=== PATIENT | female | born 1975 | race Caucasian/White ===

== ENCOUNTER → 2016-09-30 | Outpatient (CLI) | payer OTHER ==
[~2016-09-30] MED LIST: ACET-1256 PO; ACET-1325 PO; ALLO100T PO; AMT25 PO; CABE0.5T PO; CALC600T37 PO; CEFA500C2 PO; CIPR1TAB11 PO; GLC/500 PO; LEVO125T5 PO; LEVO50TA6 PO; ONDA4TAB10 SL; OXYC1TAB3 PO; POTA4.25 PO; PRD20 PO; PRED20TA PO; PRT40 PO; RIZA10TA19 PO; SULF800T23 PO; SUMA100T15 PO; SUMA100T16 PO; TPRSR/100 PO; TRAM-10 PO; URC10 PO; VLTG EXT
== END | disposition home or self-care (01) ==
LOC: C.LABPVFM 07:54
PROVIDERS: ATTEND Internal Medicine Endocrinology, Diabetes & Metabolism
DX: D49.7 Neoplasm of unspecified behavior of endocrine glands and other parts of nervous system (principal)

== ENCOUNTER → 2016-10-13 | Outpatient (CLI) | payer OTHER ==
[~2016-10-13] MED LIST changes: +LEVO125T4 PO; -LEVO125T5 PO
[2016-10-13 12:45] LABS: THYROID STIMULATING HORMONE 2.26 uIu/ml (0.300-4.500)
== END | disposition home or self-care (01) ==
LOC: C.LAB1850 11:01
PROVIDERS: ATTEND Internal Medicine Endocrinology, Diabetes & Metabolism
DX: E03.9 Hypothyroidism, unspecified (principal)

== ENCOUNTER 2016-11-07 11:44 | Inpatient (IN) | payer OTHER ==
[~2016-11-07] VITALS: Ht 160 cm; Wt 130.7 kg
[~2016-11-07 11:44] MED LIST changes: -ACET-1256 PO; -ACET-1325 PO; -ALLO100T PO; -AMT25 PO; -CABE0.5T PO; -CALC600T37 PO; -CEFA500C2 PO; -CIPR1TAB11 PO; -GLC/500 PO; -LEVO125T4 PO; -ONDA4TAB10 SL; -POTA4.25 PO; -PRD20 PO; -PRED20TA PO; -PRT40 PO; -RIZA10TA19 PO; -SULF800T23 PO; -SUMA100T15 PO; -SUMA100T16 PO; -TPRSR/100 PO; -TRAM-10 PO; -URC10 PO; -VLTG EXT
[2016-11-07] MEDS ORDERED: SODIUM CHLORIDE 0.9% 1000ML 1,000 ML IV STA (12:48)
[2016-11-07] MEDS ORDERED: CEFTRIAXONE SOD INJ 1 GM ADDVIAL IV STA (12:48)
--- NOTE | 2016-11-07 12:52 | EMERGENCY ROOM VISIT NOTE ---
History Report prepared by [place]: Elsa Ellington Under the Supervision of: Dr. Bryce Arguello M.D. First contact with patient: 12:04 Chief Complaint: FLANK PAIN Stated Complaint: BACK PAIN History of Present Illness The patient is a 41 year old female who presents to the Emergency Room with complaints of worsening right flank pain beginning this morning. The patient rates her pain as 6/10 in severity. She states that when she woke up this morning her pain had increased to be a throbbing sensation. She notes she is experiencing nausea, urinary frequency and constipation. The patient denies diarrhea or vomiting. She does have chronic generalized weakness. Patient notes that she does have a history of kidney stones and UTI. Source of History: patient Onset: this morning Position: other (right flank) Symptom Intensity: 6/10 Quality: other (throbbing) Timing: worsening Associated Symptoms: + nausea, + urinary symptoms (frequency), + weakness ( chronic generalized), No diarrhea, No vomiting Review of Systems See HPI for pertinent positives & negatives. A total of 10 systems reviewed and were otherwise negative. Past Medical & Surgical Medical Problems: (1) Diabetes (2) HTN (hypertension) (3) Weakness Family History Patient reports no known family medical history. Social History Smoking Status: Former Smoker Alcohol Use: occasionally Drug Use: none Marital Status: Current/Historical Medications Scheduled Calcium (Calcium), 600 MG PO DAILY Levothyroxine Sodium (Levothyroxine Sodium), 1 TAB PO DAILY Metoprolol Succinate (Metoprolol Succinate ER), 100 MG PO DAILY Sulfa/Trimethoprim (Bactrim Ds 800MG/160MG), 1 TAB PO BID Scheduled PRN Acetaminophen (Tylenol), 1,000 MG PO Q6H PRN for Headache or Pain Tramadol (Ultram), 1-2 TABS PO Q6 PRN for Pain Allergies Coded Allergies: Peanut (Verified Allergy, Severe, ANAPHYLAXIS, 07/17/16) Amlodipine (Verified Allergy, Intermediate, FEET SWELL AND TURN RED, 07/17) Banana (Verified Allergy, Intermediate, "DRUNKEN" FEELING, 07/17/16) NSAIDs (Verified Allergy, Unknown, hx chronic kidney diseas, 11/07/16) Uncoded Allergies: NACROTICS (Allergy, Unknown, hx of drug addiction, 11/07/16) Physical Exam Vital Signs Date Time Temp Pulse Resp B/P Pulse Ox O2 Delivery O2 Flow Rate FiO2 11/07/16 18:38 102 18 103/90 95 Room Air 11/07/16 16:40 36.9 95 27 119/80 95 11/07/16 16:30 95 27 119/80 95 Room Air 11/07/16 16:00 92 28 123/78 95 Room Air 11/07/16 14:00 89 21 137/110 97 Room Air 11/07/16 13:18 100 11/07/16 11:56 36.9 97 20 137/76 97 Room Air Physical Exam GENERAL: Patient is a healthy-appearing well-nourished HEAD: Normocephalic atraumatic EYES: Ocular movements intact pupils equal and react to light OROPHARYNX mucous membranes are moist no exudates present no erythema or edema present NECK: Supple no nuchal rigidity CHEST: Good equal expansion LUNGS: Clear and equal to auscultation CARDIAC: Normal S1 and S2 ABDOMEN: Soft nontender no guarding BACK: No CVA tenderness EXTREMITIES: No pain upon palpation normal muscle strength in all groups no clubbing cyanosis or edema NEURO: Patient is following commands is answering questions appropriately. Alert and oriented x3 Cranial Nerves 2-12 grossly intact Medical Decision & Procedures ER Provider Diagnostic Interpretation: X-ray results as stated below per my interpretation and radiologist interpretation. Other radiology results as stated below per my review and radiologist interpretation: RENAL ULTRASOUND CLINICAL HISTORY: Right flank pain. COMPARISON STUDY: Renal ultrasound May 08, 2015. TECHNIQUE: Sonography of the kidneys and the urinary bladder was performed. FINDINGS: This exam is compromised by suboptimal penetration. There is no right hydronephrosis. The right kidney measures 12.4 x 4.6 x 5.9 cm. Echogenic foci within the renal sinus suggest calculi measuring up to approximately 6 mm. The left kidney was not visualized, as before. The right ureteral jet was identified. Bladder suboptimally assessed due to underdistention. IMPRESSION: 1. No right hydronephrosis. 2. Suspected right-sided nephrolithiasis. 3. Nonvisualization of the left kidney, as shown on exam of May 08, 2015. Electronically signed by: Donis Ramirez M.D. 11/07/2016 2:37 PM Dictated Date/Time: 11/07/2016 2:35 PM KUB CLINICAL HISTORY: Right flank pain. COMPARISON STUDY: Renal ultrasound May 08, 2015 and November 07, 2016. FINDINGS: Pelvic calcifications likely reflect phleboliths although make evaluation for ureteral calculi difficult. The bowel gas pattern is normal. No renal calculi are identified although the right renal shadow is partially obscured by stool. IMPRESSION: 1. No right renal calculi identified although the right renal shadow is largely obscured by stool. 2. Numerous pelvic calcifications. These likely reflect phleboliths although distal ureteral calculi cannot be excluded on this exam. Electronically signed by: Donis Ramirez M.D. 11/07/2016 2:58 PM Dictated Date/Time: 11/07/2016 2:57 PM Laboratory Results 11/07/16 13:20 Red Blood Count 4.71, Mean Corpuscular Volume 89.2, Mean Corpuscular Hemoglobin 30.1, Mean Corpuscular Hemoglobin Concent 33.8, Mean Platelet Volume 10.2, Neutrophils (%) (Auto) 77.0, Lymphocytes (%) (Auto) 15.6, Monocytes (%) (Auto) 6.6, Eosinophils (%) (Auto) 0.1, Basophils (%) (Auto) 0.3, Neutrophils # (Auto) 9.14, Lymphocytes # (Auto) 1.86, Monocytes # (Auto) 0.79, Eosinophils # (Auto) 0.01, Basophils # (Auto) 0.04 11/07/16 13:20 Test 11/07/16 13:09 11/07/16 13:10 11/07/16 13:20 11/07/16 18:51 Urine Color YELLOW Urine Appearance CLOUDY (CLEAR) Urine pH 5.5 (4.5-7.5) Urine Specific [place] 1.015 (1.000-1.030) Urine Protein NEG (NEG) Urine Glucose (UA) NEG (NEG) Urine Ketones NEG (NEG) Urine Occult Blood 1+ (NEG) Urine Nitrite POS (NEG) Urine Bilirubin NEG (NEG) Urine Urobilinogen NEG (NEG) Urine Leukocyte Esterase MODERATE (NEG) Urine RBC 10-30 /hpf (0-4) Urine WBC >30 /hpf (0-5) Urine Epithelial Cells >30 /lpf (0-5) Urine Bacteria 4+ (NEG) Uric Acid 8.8 mg/dl (2.6-7.2) Thyroid Stimulating Hormone (TSH) 0.627 uIu/ml (0.300-4.500) White Blood Count 11.89 K/uL (4.8-10.8) Red Blood Count 4.71 M/uL (4.2-5.4) Hemoglobin 14.2 g/dL (12.0-16.0) Hematocrit 42.0 % (37-47) Mean Corpuscular Volume 89.2 fL (80-100) Mean Corpuscular Hemoglobin 30.1 pg (25-34) Mean Corpuscular Hemoglobin Concent 33.8 g/dl (32-36) Platelet Count 410 K/uL (130-400) Mean Platelet Volume 10.2 fL (7.4-10.4) Neutrophils (%) (Auto) 77.0 % Lymphocytes (%) (Auto) 15.6 % Monocytes (%) (Auto) 6.6 % Eosinophils (%) (Auto) 0.1 % Basophils (%) (Auto) 0.3 % Neutrophils # (Auto) 9.14 K/uL (1.4-6.5) Lymphocytes # (Auto) 1.86 K/uL (1.2-3.4) Monocytes # (Auto) 0.79 K/uL (0.11-0.59) Eosinophils # (Auto) 0.01 K/uL (0-0.5) Basophils # (Auto) 0.04 K/uL (0-0.2) RDW Standard Deviation 53.8 fL (36.4-46.3) RDW Coefficient of Variation 16.4 % (11.5-14.5) Immature Granulocyte % (Auto) 0.4 % Immature Granulocyte # (Auto) 0.05 K/uL (0.00-0.02) Anion Gap 14.0 mmol/L (3-11) Est Creatinine Clear Calc Drug Dose 61.1 ml/min Estimated GFR () 45.9 Estimated GFR (Non- 39.6 BUN/Creatinine Ratio 15.2 (10-20) Calcium Level 9.6 mg/dl (8.5-10.1) Total Bilirubin 0.4 mg/dl (0.2-1) Direct Bilirubin 0.1 mg/dl (0-0.2) Aspartate Amino Transf (AST/SGOT) 23 U/L (15-37) Alanine Aminotransferase (ALT/SGPT) 21 U/L (12-78) Alkaline Phosphatase 102 U/L (45-117) Total Protein 8.9 gm/dl (6.4-8.2) Albumin 3.0 gm/dl (3.4-5.0) Lipase 158 U/L (73-393) Labs reviewed by ED physician. Medications Administered Medications (Trade) Dose Ordered Sig/Kathy Route Start Time Stop Time Status Last Admin Dose Admin Ceftriaxone Sodium 1 gm 1 gm NOW STAT IV 11/07/16 12:48 11/07/16 12:50 DC 11/07/16 13:28 1 GM Sodium Chloride (Nss 1000ml) 1,000 ml @ 999 mls/hr Q1H1M STAT IV 11/07/16 12:48 11/07/16 13:48 DC 11/07/16 13:28 999 MLS/HR Trimethoprim/ Sulfamethoxazole (Septra Ds 800/ 160MG Tab) 1 tab NOW STAT PO 11/07/16 14:25 11/07/16 14:26 DC 11/07/16 15:51 1 TAB Tramadol HCl (Ultram Tab) 50 mg NOW STAT PO 11/07/16 16:19 11/07/16 16:21 DC 11/07/16 16:35 50 MG Magnesium Citrate (Citrate Of Magnesia Soln) 296 ml NOW STAT PO 11/07/16 16:19 11/07/16 16:21 DC 11/07/16 16:35 296 ML ED Course 1246: Past medical records reviewed. The patient was evaluated in room C5. A complete history and physical examination was performed. 1248: Sodium Chloride 1,000 ml @ 999 mls/hr IV, Rocephin Inj 1 gm IV. 1424: Septra Ds 800/ 160 mg Tab 1 tab PO. 1619: Citrate of Magnesia Soln 296 ml PO, Ultram Tab 50 mg PO. 1629: Upon reexamination the patient is hemodynamically stable. I discussed results and treatment plan with the patient. She verbalizes agreement and understanding. The patient is ready for discharge. 180: Patient's family states they cannot take care of her and she needs hospitalization due to her weakness. 180: I discussed the patient's case with Dr. Bulmaro ARAYA, he has agreed to evaluate the patient for further management and care. Medical Decision The patient is a 41 year old female who presents to the ED with complaints of flank pain. Differential diagnosis: Etiologies such as appendicitis, diverticulitis, PUD, biliary pathology, UTI, pancreatitis, obstruction, mesenteric ischemia, aortic pathology, infections, inflammatory bowel disease, renal colic, as well as others were entertained. This is a 41-year-old female who presents emergency department complaining of right-sided flank pain. The patient does have an elevation in her white blood count does appear to have urinary tract infection. For this reason IV was established, patient started on Rocephin. The patient was able to tolerate oral fluids emergency department and was started on Bactrim. Does appear that the patient is constipated. For this reason I recommended magnesium citrate cleanout however the patient had been discharged from emergency department profile she could not walk into her van to take her home. For this reason she was placed back in her room and I did discuss the case with the hospitalist service who agreed to admit the patient. Patient family were in agreement with the treatment plan. Consults Time Called: 1805 Consulting Physician: Dr. Yvon WARNER Returned Call: [phone] I discussed the patient's case with Dr. Bulmaro WARNER, he has agreed to evaluate the patient for further management and care. Impression Primary Impression: Flank pain Additional Impressions: UTI (urinary tract infection) Constipation Scribe Attestation The scribe's documentation has been prepared under my direction and personally reviewed by me in its entirety. I confirm that the note above accurately reflects all work, treatment, procedures, and medical decision making performed by me. Departure Information Dispostion Being Evaluated By Hospitalist Prescriptions Tramadol (Ultram) 50 Mg Tab 1-2 TABS PO Q6 Y for Pain, #14 TAB Prov: Bryce Arguello MD 11/07/16 Sulfa/Trimethoprim (Bactrim Ds 800MG/160MG) Tab 1 TAB PO BID for 10 Days, #20 TAB Prov: Bryce Arguello MD 11/07/16 Referrals Dana Harrington C.R.N.Bonifacio (PCP) Problem Qualifiers Additional Impressions: UTI (urinary tract infection) Urinary tract infection type: acute cystitis Hematuria presence: with hematuria Qualified Codes: N30.01 - Acute cystitis with hematuria Constipation Constipation type: slow transit constipation Qualified Codes: K59.01 - Slow transit constipation
[2016-11-07 13:26] LABS: MANUAL MICROSCOPIC REQUIRED? YES; URINE APPEARANCE CLOUDY (CLEAR); URINE BILIRUBIN NEG (NEG); URINE COLOR YELLOW; URINE NITRITE POS (NEG); URINE PH 5.5 (4.5-7.5); URINE SPECIFIC GRAVITY 1.015 (1.000-1.030); UROBILINOGEN NEG (NEG)
[2016-11-07 13:31] LABS: REVIEW REQ? NO
[2016-11-07 13:32] LABS: BASO % 0.3 %; BASO ABS # 0.04 K/uL (0-0.2); COMPLETE YES; EOS % 0.1 %; IG% 0.4 %; LYMPH % 15.6 %; LYMPH ABS # 1.86 K/uL (1.2-3.4); MEAN CELL VOLUME 89.2 fL (80-100); MEAN CORPUSCULAR HEMOGLOBIN 30.1 pg (25-34); MEAN CORPUSCULAR HGB CONC 33.8 g/dl (32-36); MEAN PLATELET VOLUME 10.2 fL (7.4-10.4); MONO % 6.6 %; PLATELET COUNT 410 K/uL (130-400); RED BLOOD COUNT 4.71 M/uL (4.2-5.4); WHITE BLOOD COUNT 11.89 K/uL (4.8-10.8)
[2016-11-07 13:35] LABS: URINE BACTERIA 4+ (NEG); URINE WBC >30 /hpf (0-5)
[2016-11-07 13:36] LABS: ZZUR CULT IF INDIC CLEAN CATCH YES
[2016-11-07 14:01] LABS: BUN/CREATININE RATIO 15.2 (10-20); CALCIUM 9.6 mg/dl (8.5-10.1); CREATININE 1.6 mg/dl (0.60-1.20); POTASSIUM 3.8 mmol/L (3.5-5.1)
[2016-11-07] MEDS ORDERED: SULFAMETHOXAZOLE/TRIMETHOPRIM DS 800/160MG TAB PO STA (14:25)
--- NOTE | 2016-11-07 14:39 | DIAGNOSTIC IMAGING REPORT ---
RENAL ULTRASOUND CLINICAL HISTORY: Right flank pain. COMPARISON STUDY: Renal ultrasound May 08, 2015. TECHNIQUE: Sonography of the kidneys and the urinary bladder was performed. FINDINGS: This exam is compromised by suboptimal penetration. There is no right hydronephrosis. The right kidney measures 12.4 x 4.6 x 5.9 cm. Echogenic foci within the renal sinus suggest calculi measuring up to approximately 6 mm. The left kidney was not visualized, as before. The right ureteral jet was identified. Bladder suboptimally assessed due to underdistention. IMPRESSION: 1. No right hydronephrosis. 2. Suspected right-sided nephrolithiasis. 3. Nonvisualization of the left kidney, as shown on exam of May 08, 2015. Electronically signed by: Donis Ramirez M.D. 11/07/2016 2:37 PM Dictated Date/Time: 11/07/2016 2:35 PM
--- NOTE | 2016-11-07 14:59 | DIAGNOSTIC IMAGING REPORT ---
KUB CLINICAL HISTORY: Right flank pain. COMPARISON STUDY: Renal ultrasound May 08, 2015 and November 07, 2016. FINDINGS: Pelvic calcifications likely reflect phleboliths although make evaluation for ureteral calculi difficult. The bowel gas pattern is normal. No renal calculi are identified although the right renal shadow is partially obscured by stool. IMPRESSION: 1. No right renal calculi identified although the right renal shadow is largely obscured by stool. 2. Numerous pelvic calcifications. These likely reflect phleboliths although distal ureteral calculi cannot be excluded on this exam. Electronically signed by: Donis Ramirez M.D. 11/07/2016 2:58 PM Dictated Date/Time: 11/07/2016 2:57 PM
[2016-11-07] MEDS ORDERED: MAGNESIUM CITRATE 296 ML/BTL PO STA (16:19)
[2016-11-07] MEDS ORDERED: TRAMADOL HCL 50 MG TAB PO STA (16:19)
[2016-11-07] MEDS ORDERED: TRAM-10 PO (16:25)
[2016-11-07] MEDS ORDERED: SULF800T23 PO (16:25)
[2016-11-07] MEDS ORDERED: ACETAMINOPHEN 500 MG TAB PO PRN (18:15)
[2016-11-07] MEDS ORDERED: ONDANSETRON INJ 2 MG/ML 2 ML VIAL IV PRN (18:15)
[2016-11-07] MEDS ORDERED: POLYETHYLENE (MIRALAX) 17 GM PACK PO PRN (18:15)
[2016-11-07] MEDS ORDERED: MAGNESIUM HYDROXIDE SUSP 30 ML UDC PO PRN (18:15)
[2016-11-07] MEDS ORDERED: ALUMINUM/MAGNESIUM/SIMETH (MAALOX MAX) 30 ML UDC PO PRN (18:15)
[2016-11-07 18:43] LABS: THYROID STIMULATING HORMONE 0.627 uIu/ml (0.300-4.500); URIC ACID 8.8 mg/dl (2.6-7.2)
[2016-11-07 18:47] VITALS: O2SAT 95; Ht 160 cm; Wt 130.7 kg
[2016-11-07 19:11] LABS: INR 1.1 (0.9-1.1); PROTHROMBIN TIME (PATIENT) 11.7 SECONDS (9.0-12.0)
[2016-11-07 19:45] VITALS: BP 128/92; PULSE 107; TEMP 36.9; O2SAT 95
[2016-11-07 20:30] VITALS: O2SAT 95
[2016-11-07] MEDS: HEPARIN SOD 5000 UNIT/0.5 ML CARP SQ SCH (20:55)
--- NOTE | 2016-11-07 21:38 | HISTORY & PHYSICAL EXAMINATION ---
DATE OF ADMISSION: 11/07/2016 CHIEF COMPLAINT: Flank pain. HISTORY OF PRESENT ILLNESS: This is a 41-year-old female, who presents to Emergency Room complaining of worsening right flank pain that started in the morning. She has pain 6/10, sharp, radiating to her right groin. She states that she woke up and had this throbbing pain sensation, associated with nausea, increased frequency of urination, burning and constipation. She also has generalized weakness. She also has history of kidney stones and UTI in the past. We were called by Emergency Room physician because the patient is being discharged home. She could not walk and upon further questioning, she said that she had really trouble walking in the last few days and today she just could not stand. She was brought back to the room where she was further evaluated. She also complains of right toe pain, to the point where she cannot step on it. She also has a solitary kidney since her and her baseline creatinine is 1.5-1.6. REVIEW OF SYSTEMS: Negative except as above. Ten out of fourteen systems were reviewed. PAST MEDICAL HISTORY: Diabetes mellitus type 2, hypertension and weakness. FAMILY HISTORY: Heart disease. SOCIAL HISTORY: Does not smoke, does not drink, does not use drugs. . CURRENT MEDICATIONS: Calcium 600 mg p.o. daily, levothyroxine unknown dose 1 tablet p.o. daily, metoprolol ER 100 mg p.o. daily, Bactrim 800/160 mg 1 tablet p.o. b.i.d. She also received a dose of IV ceftriaxone at 1:30 p.m. today in the Emergency Room. Tylenol 1000 mg p.o. q. 6 hours p.r.n. headache or pain, tramadol 1-2 tablets p.o. q. 6 hours p.r.n. pain. ALLERGIES: TO PEANUTS, AMLODIPINE, BANANA, NSAIDS AND NARCOTICS. PHYSICAL EXAMINATION: VITAL SIGNS: Temperature 36.9, pulse 95, respirations 27, blood pressure 119/80 and 95% on room air. GENERAL: Not in acute distress. HEENT: Normocephalic, atraumatic. PERRLA, EOMI. Mouth moist, no lesions. NECK: No JVD. Trachea midline. Thyroid is not enlarged. LUNGS: Clear to auscultation bilateral. No wheezes, no rhonchi. HEART: S1, S2. RRR. ABDOMEN: Soft, nontender, nondistended. Bowel sounds present bilateral. BACK: No CVA tenderness. EXTREMITIES: No clubbing, cyanosis or edema. Right toe is very tender to touch; however, not red or inflamed. NEUROLOGICAL: Alert, oriented x3. Motor and sensory normal. Deep tendon reflexes 2+ bilateral. DIAGNOSTIC INTERPRETATION: Renal ultrasound showed no right hydronephrosis, suspected right-sided nephrolithiasis with renal sinus calculi approximately 6 mm, nonvisualization of the left kidney shown on exam on 05/08/2015. KUB showed no right renal calculi identified, although the right renal shadow was largely obscured by stool. Numerous pelvic calcifications, phleboliths. LABORATORIES: White count of11.9, hemoglobin of 14.8 and platelets of 411. Sodium 144, potassium 3.8, chloride 108, CO2 of 22, creatinine of 1.6, BUN of 24 and glucose of 104. Urine culture is pending. Urinalysis showed 1+ occult blood, positive nitrites, moderate leukocyte esterase, 10-30 red blood cells, more than 30 white blood cells, urine epithelial cells more than 30 and 4+ bacteria. ASSESSMENT AND PLAN: A 41-year-old female, who came with flank pain and right toe pain. 1. Right-sided nephrolithiasis, 6 mm renal sinus calculi. Admit to general medical floor, n.p.o. past midnight. Consult urologist. Start on IV ceftriaxone. 2. Urinary tract infection. Check urine cultures and continue IV ceftriaxone. 3. Suspected acute gout exacerbation. Start patient on oral prednisone. Unable to give colchicine and ibuprofen or aspirin due to kidney dysfunction. Consult orthopedic surgeon for possible aspiration of right toe joint to see if crystals are present. 4. Weakness, unable to walk, likely secondary to infection and gout. We will also order physical therapy and occupational therapy when the patient is able to participate and treat underlying causes. 5. History of hypothyroidism, continue the patient on home dose. Check TSH. 6. History of hypertension. Continue metoprolol. 7. Mentioned history of diabetes; however sugars are normal, not on any medications. I will check a hemoglobin A1c and we will start checking her blood sugars before meals and bedtime. 8. Deep venous thrombosis and gastrointestinal prophylaxis. The patient is a full code. Time spent on doing this admission; 50 minutes. MTDD
[2016-11-07] MEDS: TRAMADOL HCL 50 MG TAB PO PRN (22:48)
[2016-11-07 23:18] VITALS: BP 114/76; PULSE 98; TEMP 36.9; O2SAT 97
[2016-11-08] MEDS: ACETAMINOPHEN 325 MG TAB PO PRN ×3 (00:01→15:49)
[2016-11-08] MEDS: LEVOTHYROXINE 125 MCG TAB PO SCH (05:37)
[2016-11-08] MEDS: TRAMADOL HCL 50 MG TAB PO PRN ×2 (05:38→12:45)
[2016-11-08 06:18] LABS: ESTIMATED AVERAGE GLUCOSE 111 mg/dl; HA1C FLAG Normal (Normal)
[2016-11-08 08:05] VITALS: BP 106/72; PULSE 80; TEMP 37; O2SAT 95
[2016-11-08 08:15] LABS: BASO % 0.4 %; BASO ABS # 0.04 K/uL (0-0.2); COMPLETE YES; EOS % 0.4 %; HEMATOCRIT 37.7 % (37-47); IG% 0.4 %; LYMPH ABS # 1.75 K/uL (1.2-3.4); MEAN CELL VOLUME 91.3 fL (80-100); MEAN PLATELET VOLUME 10.3 fL (7.4-10.4); MONO % 8.7 %; NEUT % 73.1 %; PLATELET COUNT 338 K/uL (130-400); RED BLOOD COUNT 4.13 M/uL (4.2-5.4)
[2016-11-08 08:16] VITALS: O2SAT 95
--- NOTE | 2016-11-08 08:31 | Urology Consultation ---
History General Date of Service: Nov 08, 2016. Chief Complaint: right flank pain Primary Care Physician: Dana Harrington C.R.N.P History of Present Illness 41 yo female presents to [facility] with c/o severe right flank pain and nausea that started yesterday. ? ureteral stone. No stones visualized on KUB. Small right renal stone noted on renal u/s. Negative for right hydro. The pt was born with a solitary right kidney. She has a hx of passing a stone many years ago while living in [place]. Baseline Cr noted to be 1.5-1.6. She also has a hx of gout for which she is currently being treated. She reports her flank pain and nausea have improved this morning. Denies dysuria or hematuria. She is currently afebrile. UC&S preliminarily growing gram negative bacilli. White count has normalized. Imaging Imaging: KUB, Ultrasound Laboratory Last 24 Hours Test 11/07/16 13:09 11/07/16 13:10 11/07/16 13:20 11/07/16 20:40 Urine Color YELLOW Urine Appearance CLOUDY Urine pH 5.5 Urine Specific [place] 1.015 Urine Protein NEG Urine Glucose (UA) NEG Urine Ketones NEG Urine Occult Blood 1+ Urine Nitrite POS Urine Bilirubin NEG Urine Urobilinogen NEG Urine Leukocyte Esterase MODERATE Urine RBC 10-30 /hpf Urine WBC >30 /hpf Urine Epithelial Cells >30 /lpf Urine Bacteria 4+ Uric Acid 8.8 mg/dl Thyroid Stimulating Hormone (TSH) 0.627 uIu/ml White Blood Count 11.89 K/uL Red Blood Count 4.71 M/uL Hemoglobin 14.2 g/dL Hematocrit 42.0 % Mean Corpuscular Volume 89.2 fL Mean Corpuscular Hemoglobin 30.1 pg Mean Corpuscular Hemoglobin Concent 33.8 g/dl Platelet Count 410 K/uL Mean Platelet Volume 10.2 fL Neutrophils (%) (Auto) 77.0 % Lymphocytes (%) (Auto) 15.6 % Monocytes (%) (Auto) 6.6 % Eosinophils (%) (Auto) 0.1 % Basophils (%) (Auto) 0.3 % Neutrophils # (Auto) 9.14 K/uL Lymphocytes # (Auto) 1.86 K/uL Monocytes # (Auto) 0.79 K/uL Eosinophils # (Auto) 0.01 K/uL Basophils # (Auto) 0.04 K/uL RDW Standard Deviation 53.8 fL RDW Coefficient of Variation 16.4 % Immature Granulocyte % (Auto) 0.4 % Immature Granulocyte # (Auto) 0.05 K/uL Prothrombin Time 11.7 SECONDS Prothromb Time International Ratio 1.1 Sodium Level 144 mmol/L Potassium Level 3.8 mmol/L Chloride Level 108 mmol/L Carbon Dioxide Level 22 mmol/L Anion Gap 14.0 mmol/L Blood Urea Nitrogen 24 mg/dl Creatinine 1.60 mg/dl Est Creatinine Clear Calc Drug Dose 61.1 ml/min Estimated GFR () 45.9 Estimated GFR (Non- 39.6 BUN/Creatinine Ratio 15.2 Random Glucose 104 mg/dl Estimated Average Glucose 111 mg/dl Hemoglobin A1c 5.5 % Calcium Level 9.6 mg/dl Total Bilirubin 0.4 mg/dl Direct Bilirubin 0.1 mg/dl Aspartate Amino Transf (AST/SGOT) 23 U/L Alanine Aminotransferase (ALT/SGPT) 21 U/L Alkaline Phosphatase 102 U/L Total Protein 8.9 gm/dl Albumin 3.0 gm/dl Lipase 158 U/L Bedside Glucose 104 mg/dl Test 11/08/16 07:39 11/08/16 08:05 Bedside Glucose 102 mg/dl White Blood Count 10.30 K/uL Red Blood Count 4.13 M/uL Hemoglobin 12.8 g/dL Hematocrit 37.7 % Mean Corpuscular Volume 91.3 fL Mean Corpuscular Hemoglobin 31.0 pg Mean Corpuscular Hemoglobin Concent 34.0 g/dl Platelet Count 338 K/uL Mean Platelet Volume 10.3 fL Neutrophils (%) (Auto) 73.1 % Lymphocytes (%) (Auto) 17.0 % Monocytes (%) (Auto) 8.7 % Eosinophils (%) (Auto) 0.4 % Basophils (%) (Auto) 0.4 % Neutrophils # (Auto) 7.53 K/uL Lymphocytes # (Auto) 1.75 K/uL Monocytes # (Auto) 0.90 K/uL Eosinophils # (Auto) 0.04 K/uL Basophils # (Auto) 0.04 K/uL RDW Standard Deviation 56.6 fL RDW Coefficient of Variation 16.8 % Immature Granulocyte % (Auto) 0.4 % Immature Granulocyte # (Auto) 0.04 K/uL Problem List Medical Problems: (1) Constipation Status: Acute (2) Edema Status: Acute (3) Flank pain Status: Acute (4) Knee pain Status: Acute (5) UTI (urinary tract infection) Status: Acute Past History diabetes, hypertension, kidney stones, other (morbid obesity) Past Surgical History: no surgical history Family History Patient reports no known family medical history. Social History Smoking: other (former smoker) Alcohol: occasional Drug use: none Marital status: Housing status: lives with family Allergies Coded Allergies: Peanut (Verified Allergy, Severe, ANAPHYLAXIS, 07/17/16) Amlodipine (Verified Allergy, Intermediate, FEET SWELL AND TURN RED, 07/17) Banana (Verified Allergy, Intermediate, "DRUNKEN" FEELING, 07/17/16) NSAIDs (Verified Allergy, Unknown, hx chronic kidney diseas, 11/07/16) Uncoded Allergies: NACROTICS (Allergy, Unknown, hx of drug addiction, 11/07/16) Medications Home Medications: Home Meds and Scripts Medications Dose Route/Sig Max Daily Dose Days Date Category Ultram (Tramadol HCl) 50 Mg Tab 1-2 Tabs PO Q6 PRN 11/07/16 Rx Bactrim Ds 800MG/160MG (Trimethoprim/Sulfamethoxazole) Tab 1 Tab PO BID 10 11/07/16 Rx Levothyroxine Sodium 125 Mcg Tab 1 Tab PO DAILY 90 11/07/16 Reported Metoprolol Succinate ER (Metoprolol Succinate) 100 Mg Tabcr 100 Mg PO DAILY 07/23/16 Reported Calcium 600 Mg Tab 600 Mg PO DAILY 07/17/16 Reported Tylenol (Acetaminophen) 500 Mg Tab 1,000 Mg PO Q6H PRN 01/09/15 Reported Inpatient Medications: Current Inpatient Medications Medications (Trade) Dose Ordered Sig/Kathy Route Start Time Stop Time Status Last Admin Dose Admin Levothyroxine Sodium (Synthroid Tab) 125 mcg DAILYBB PO 11/08/16 06:00 12/08/16 06:59 11/08/16 05:37 125 MCG Tramadol HCl (Ultram Tab) 50 mg Q6 PRN PO 11/07/16 18:15 12/07/16 18:14 11/08/16 05:38 50 MG Calcium/Vitamin D (Caltrate Plus Tab) 1 tab DAILY PO 11/08/16 09:00 12/08/16 08:59 Metoprolol Succinate 100 mg 100 mg DAILY PO 11/08/16 09:00 12/08/16 08:59 Ceftriaxone Sodium/Dextrose (Rocephin Inj/ Dextrose Add-H[place]art 50ML) 50 ml @ 100 mls/hr DAILY@1400 IV 11/08/16 14:00 11/16/16 14:29 Acetaminophen (Tylenol Tab) 650 mg Q4H PRN PO 11/07/16 18:15 12/07/16 18:14 11/08/16 06:25 650 MG Al Hydrox/Mg Hydrox/Simethicone (Maalox Max Susp) 15 ml Q4H PRN PO 11/07/16 18:15 12/07/16 18:14 Magnesium Hydroxide (Milk Of Magnesia Susp) 30 ml Q6H PRN PO 11/07/16 18:15 12/07/16 18:14 Polyethylene (Miralax Powder Packet) 17 gm DAILY PRN PO 11/07/16 18:15 12/07/16 18:14 Ondansetron HCl (Zofran Inj) 4 mg Q6H PRN IV 11/07/16 18:15 12/07/16 18:14 Heparin Sodium (Porcine) (Heparin Sq 5000 Unit/0.5ml) 5,000 unit Q12 SQ 11/07/16 21:00 12/07/16 20:59 11/07/16 20:55 5,000 UNIT Prednisone (PredniSONE TAB) 60 mg DAILY PO 11/07/16 18:30 12/07/16 18:29 Review of Systems Review of Systems Constitutional: No chills, No fever Eyes: No double vision Neurological: No dizzy Endocrine: No excessive thirst Gastrointestinal: No abdominal pain, No nausea, No vomiting Cardiovascular: No chest pain Respiratory: No shortness of breath Skin: No rash Musculoskeletal: + joint pain (fingers and toes with active gout ), No back pain Female : No blood in urine, No painful urination Physical Exam Vital Signs: Vital Signs Past 12 Hours Date Time Temp Pulse Resp B/P Pulse Ox O2 Delivery O2 Flow Rate FiO2 11/08/16 08:16 95 Room Air 11/08/16 08:05 37.0 80 20 106/72 95 Room Air 11/07/16 23:55 Room Air 11/07/16 23:18 36.9 98 20 114/76 97 Room Air 11/07/16 20:30 95 Room Air Physical Exam: General Appearance: no apparent distress, + obese Eyes: bilateral eyes normal inspection ENT: hearing grossly normal Neck: no JVD Respiratory/Chest: no respiratory distress, no accessory muscle use Cardiovascular: no JVD Extremities: normal inspection Neurologic/Psychiatric: alert, normal mood/affect, oriented x 3 Skin: normal color Assessment & Plan Assessment & Plan A/P: Right flank pain, solitary right kidney, UTI AFVSS. Pt with right flank pain and UTI. Continue IV abx pending culture sensitivities. Pt may be a uric acid stone former d/t hx of gout. Will get a non-contrast CT today to r/o ureteral stone. NPO after midnight in the event she is shown to have a ureteral stone and needs stent placement. Supportive management with IVF and pain control for now. Thanks for the consult. Will continue to follow along with primary service at this time.
[2016-11-08 08:35] LABS: BUN/CREATININE RATIO 12.9 (10-20); CREATININE 1.5 mg/dl (0.60-1.20); POTASSIUM 3.7 mmol/L (3.5-5.1)
[2016-11-08] MEDS: HEPARIN SOD 5000 UNIT/0.5 ML CARP SQ SCH ×2 (09:00→20:48)
[2016-11-08] MEDS: CALCIUM 600MG + VIT D 400 IU TAB PO SCH (09:01)
[2016-11-08] MEDS: METOPROLOL SUCC 50MG EXT REL TAB PO SCH (09:02)
[2016-11-08] MEDS ORDERED: NURSING VERBAL MED ORDER ONE (09:45)
[2016-11-08] MEDS: DICLOFENAC SOD 1% GEL 100 GM TUBE EXT SCH ×3 (11:12→20:44)
--- NOTE | 2016-11-08 11:20 | DIAGNOSTIC IMAGING REPORT ---
ABDOMEN AND PELVIS CT WITHOUT CONTRAST CT DOSE: 1112.82 mGycm HISTORY: ? Ureteral stone; right flank pain; gout TECHNIQUE: Multiaxial CT images of the abdomen and pelvis were performed without the use of intravenous and oral contrast according to the standard department stone protocol. COMPARISON STUDY: Renal ultrasound 11/07/2016. FINDINGS: Calcified granuloma the right lower lobe. Bilateral L4 spondylolysis with associated grade I anterolisthesis. The unenhanced liver, spleen, adrenal glands, gallbladder, and pancreas are unremarkable. The left kidney is absent. There are multiple stones within the right kidney with the largest measuring 4 mm within the lower pole. Normal caliber left ureter. There is also a normal right ureter. No ureteral calculi identified. The bladder is unremarkable. The uterus and bilateral adnexa are unremarkable. No pelvic free fluid. Suboptimal evaluation for bowel pathology due to the lack of intravenous and oral contrast. However, there is no definite bowel wall thickening or obstruction. Normal appendix. No retroperitoneal lymphadenopathy. IMPRESSION: 1. Right-sided nephrolithiasis. No hydronephrosis. 2. Absent left kidney, unchanged. 3. No definite bowel wall thickening or obstruction. 4. Normal appendix. Electronically signed by: Ayden Otero M.D. 11/08/2016 11:18 AM Dictated Date/Time: 11/08/2016 10:58 AM
[2016-11-08 14:30] VITALS: BP 124/76; PULSE 88; O2SAT 95
[2016-11-08] MEDS: CEFTRIAXONE SOD INJ 1 GM in DEXTROSE 5% ADD-VANTAGE 50ML 50 ML IV SCH (14:41)
[2016-11-08 15:15] VITALS: BP 112/77; PULSE 88; TEMP 37; O2SAT 94
--- NOTE | 2016-11-08 17:20 | Hospitalist Progress Note ---
Hospitalist Progress Note Date of Service Nov 08, 2016. Subjective Pt evaluation today including: conversation w/ patient, physical exam, chart review, lab review, review of studies, review of inpatient medication list PO Intake: jeff breakfast and lunch today Reports continued severe pain in bilat knees, right middle toe pain is improved slightly from yesterday. Right flank and right groin pain are improved. She had PT/OT evals and was recommended to have acute rehab. CT scan results reviewed with her Constitutional: No fever Cardiovascular: No chest pain Abdomen: No nausea, No pain, No vomiting Musculoskeletal: + joint pain Neurologic: + problem reported (headaches) Skin: No rash Objective Vital Signs Date Time Temp Pulse Resp B/P Pulse Ox O2 Delivery O2 Flow Rate FiO2 11/08/16 15:35 Room Air 11/08/16 15:15 37.0 88 18 112/77 94 Room Air 11/08/16 14:30 88 95 11/08/16 08:16 95 Room Air 11/08/16 08:05 37.0 80 20 106/72 95 Room Air 11/08/16 07:23 Room Air 11/07/16 23:55 Room Air 11/07/16 23:18 36.9 98 20 114/76 97 Room Air 11/07/16 20:30 95 Room Air 11/07/16 19:45 36.9 107 16 128/92 95 Room Air 11/07/16 19:37 95 18 134/95 95 11/07/16 18:47 95 Room Air 11/07/16 18:38 102 18 103/90 95 Room Air Physical Exam General Appearance: WD/WN, no apparent distress, + obese Eyes: sclerae normal ENT: hearing grossly normal, + pertinent finding (very poor dentition) Neck: trachea midline (and obese) Respiratory/Chest: lungs clear, normal breath sounds, no respiratory distress, no accessory muscle use Cardiovascular: regular rate, rhythm, no edema, no gallop, no murmur Abdomen: normal bowel sounds, soft, no organomegaly, + tenderness (in RLQ without guarding or rebound) Extremities: + pertinent finding (bilat knees with TTP over medial and anterior knees, right middle toe with mild ttp at base of prom phalanx, no erythema or edema) Neurologic/Psychiatric: alert, oriented x 3 Skin: normal color, warm/dry, no rash Laboratory Results Last 24 Hours Test 11/07/16 20:40 11/08/16 07:39 11/08/16 08:05 Bedside Glucose 104 mg/dl 102 mg/dl White Blood Count 10.30 K/uL Red Blood Count 4.13 M/uL Hemoglobin 12.8 g/dL Hematocrit 37.7 % Mean Corpuscular Volume 91.3 fL Mean Corpuscular Hemoglobin 31.0 pg Mean Corpuscular Hemoglobin Concent 34.0 g/dl Platelet Count 338 K/uL Mean Platelet Volume 10.3 fL Neutrophils (%) (Auto) 73.1 % Lymphocytes (%) (Auto) 17.0 % Monocytes (%) (Auto) 8.7 % Eosinophils (%) (Auto) 0.4 % Basophils (%) (Auto) 0.4 % Neutrophils # (Auto) 7.53 K/uL Lymphocytes # (Auto) 1.75 K/uL Monocytes # (Auto) 0.90 K/uL Eosinophils # (Auto) 0.04 K/uL Basophils # (Auto) 0.04 K/uL RDW Standard Deviation 56.6 fL RDW Coefficient of Variation 16.8 % Immature Granulocyte % (Auto) 0.4 % Immature Granulocyte # (Auto) 0.04 K/uL Sodium Level 139 mmol/L Potassium Level 3.7 mmol/L Chloride Level 106 mmol/L Carbon Dioxide Level 19 mmol/L Anion Gap 14.0 mmol/L Blood Urea Nitrogen 19 mg/dl Creatinine 1.50 mg/dl Est Creatinine Clear Calc Drug Dose 65.2 ml/min Estimated GFR () 49.6 Estimated GFR (Non- 42.8 BUN/Creatinine Ratio 12.9 Random Glucose 102 mg/dl Calcium Level 9.0 mg/dl Assessment and Plan A 41-year-old female with a h/o Rafke's Cleft cyst, right papilledema and headache syndrome (possible Pseudotumor cerebri), secondary amenorrhea, obesity , HTN, gout, kidney stones, congenital absence of left kidney, CKD Stage III, hypothyroidism, who presented with right sided flank pain, bilateral acute on chronic knee pain, and right middle toe pain. Joint pains thought to be gout related. Renal US showed: 1. No right hydronephrosis. 2. Suspected right-sided nephrolithiasis. 3. Nonvisualization of the left kidney, as shown on exam of May 08, 2015. CT Abd/Pel without contrast showed: 1. Right-sided nephrolithiasis. No hydronephrosis. 2. Absent left kidney, unchanged. 3. No definite bowel wall thickening or obstruction. 4. Normal appendix 1. Right-sided nephrolithiasis, Consult urologist. Start on IV ceftriaxone for UTI, no signs of sepsis -no hydronephrosis or MELBA, may have passed a stone? -appreciate further Urology recommendations 2. Urinary tract infection. -f/u urine culture with GNRs > 100k so far -continue IV ceftriaxone 3. Suspected acute gout exacerbation. Has long h/o joint pains mostly in knees requiring PT and Ortho evaluations at [facility] in the past. Uric acid level here is high at 8.8 -continue oral prednisone and taper down -consider starting allopurinol -Unable to give colchicine and ibuprofen or aspirin due to kidney dysfunction. -Consult orthopedic surgeon for possible aspiration of right toe joint to see if crystals are present. -PT/OT recommending acute rehab placement-will see if pt agreeable -pain control with prednisone, tylenol, tramadol, and voltaren gel Hypothyroidism, pituitary gland tumor, secondary amenorrhea, obesity. Ongoing outpt workups with Endocrine, Neurology (for pseudotumor cerebri, was to have LP today for opening pressure), and Neuroendocrine as well as NS (no surgery indicated). TSH here normal -continue synthroid Hypertension. STable - Continue metoprolol Deep venous thrombosis and gastrointestinal prophylaxis with heparin SQ and PPI Full code.
[2016-11-08] MEDS ORDERED: BUPIVACAINE 0.5 % 5 MG/1 ML MPF 30ML VIAL INFIL ONE (19:00)
[2016-11-08] MEDS ORDERED: METHYLPREDNISOLONE ACETATE 80 MG/ML VIAL IA ONE ×2 (19:00→19:05)
[2016-11-08] MEDS ORDERED: ETHYL CHLORIDE AER SPR 100 ML CAN EXT ONE (19:00)
--- NOTE | 2016-11-08 21:06 | ORTHOPEDIC CONSULTATION ---
DATE OF CONSULTATION: 11/08/2016 HOSPITAL CONSULTATION CHIEF COMPLAINT: Knee pain. HISTORY OF PRESENT ILLNESS: This patient is a 41-year-old morbidly obese female with a BMI of 51, who apparently has multiple medical complaints. She was admitted for what was supposedly weakness. She has a history of groin and flank pain as well and is admitted for a possible kidney stone. Apparently, patient has a prolonged history of knee pain which she has had orthopedic care by Dr. Morel at [facility]. She states her weakness has been getting worse, she is having trouble ambulating, but also now has knee pain. She last had injections apparently in her knees in June of 2016 using a corticosteroid. MEDICAL AND SURGICAL HISTORY: See admission history and physical. MEDICATIONS: Also per her admission history and physical. PHYSICAL EXAMINATION: GENERAL: Again, morbidly obese female, she is seated in a chair, at this time she is not in acute distress. EXTREMITIES: Examination of the lower extremities. Limited mostly to the knees. She did not have much effusion or warmth to her knees at this time. Her knees are flexed 90 degrees, she can extend them almost to 0 with some crepitus. She does not have any appreciable effusion, again no warmth and no instability. X-RAYS: Radiographs are not available at this time, apparently had been taken at [facility]. IMPRESSION: 1. 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 2. Morbid obesity. 3. Questionable history of gout, possible gouty arthritis. PLAN: The patient is a candidate for an injection. She has not had injections in some time. We will be happy to inject her. The injections will have to be ordered for the bedside and given, anticipate being able to give them on November 09. Thank you very much for this consultation.
[2016-11-08 23:55] VITALS: BP 106/72; PULSE 80; TEMP 36.7; O2SAT 97
[2016-11-09] MEDS: LEVOTHYROXINE 125 MCG TAB PO SCH (06:07)
[2016-11-09 06:57] LABS: BUN/CREATININE RATIO 15.2 (10-20); CALCIUM 9.3 mg/dl (8.5-10.1); CREATININE 1.3 mg/dl (0.60-1.20); MAGNESIUM 2.4 mg/dl (1.8-2.4); POTASSIUM 3.7 mmol/L (3.5-5.1)
[2016-11-09 07:07] VITALS: BP 109/67; PULSE 83; TEMP 36.7; O2SAT 95
[2016-11-09 08:10] LABS: BASO % 0.2 %; BASO ABS # 0.02 K/uL (0-0.2); COMPLETE YES; EOS % 0.1 %; HEMATOCRIT 37.3 % (37-47); IG% 0.4 %; LYMPH % 23.9 %; LYMPH ABS # 2.43 K/uL (1.2-3.4); MEAN CORPUSCULAR HEMOGLOBIN 30.2 pg (25-34); MEAN CORPUSCULAR HGB CONC 33.2 g/dl (32-36); MEAN PLATELET VOLUME 10.6 fL (7.4-10.4); MONO % 8.7 %; NEUT % 66.7 %; PLATELET COUNT 344 K/uL (130-400); WHITE BLOOD COUNT 10.18 K/uL (4.8-10.8)
[2016-11-09 08:38] LABS: BUN/CREATININE RATIO 14.1 (10-20); CALCIUM 9.1 mg/dl (8.5-10.1); CREATININE 1.4 mg/dl (0.60-1.20); POTASSIUM 3.7 mmol/L (3.5-5.1)
[2016-11-09] MEDS: METOPROLOL SUCC 50MG EXT REL TAB PO SCH (08:47)
[2016-11-09] MEDS: CALCIUM 600MG + VIT D 400 IU TAB PO SCH (08:47)
[2016-11-09] MEDS: DICLOFENAC SOD 1% GEL 100 GM TUBE EXT SCH ×4 (08:48→20:43)
[2016-11-09] MEDS: HEPARIN SOD 5000 UNIT/0.5 ML CARP SQ SCH ×2 (08:57→20:42)
[2016-11-09 09:00] VITALS: BP 108/77; PULSE 85; O2SAT 94
[2016-11-09] MEDS: PANTOprazole SOD 40 MG TAB PO SCH (09:06)
--- NOTE | 2016-11-09 11:55 | Procedure Note ---
Procedure Note Procedure Date Nov 09, 2016. Procedure Description Procedure Name: bilateral cortisone injections Procedure time out: side/site verified, patient ID confirmed, correct procedure Consent obtained: verbal Time of procedure: 11:50 Performed by: physician bi data architect (Donnie PHILIP) Indications: therapeutic Contraindications: none Description: time out taken, correct patient and extremities identified, 80mg depomedrol and 2 cc of bupivicaine injected into bilateral knees. she tolerated the procedure well. bandaid applied to injection site. Complications: none Patient tolerated procedure: well
--- NOTE | 2016-11-09 12:04 | Orthopedic Progress Note ---
Orthopedic Progress Note Date of Service Nov 09, 2016. Subjective Reports: feeling well Additional Notes: c/o bilateral knee pain, same as yesterday. has had previous injections which lasted for about 3 months. Objective calves soft nontender, N/V intact, capillary refill less than 2 sec., A&O x3, toes mobile +crepitation bilaterally, diffuse tenderness medial/lateral joint lines. no erythema or warmth, mild effusion. no signs of infection Date Time Temp Pulse Resp B/P Pulse Ox O2 Delivery O2 Flow Rate FiO2 11/09/16 09:00 85 108/77 94 Room Air 11/09/16 08:05 Room Air 11/09/16 07:07 36.7 83 16 109/67 95 Room Air 11/09/16 00:43 Room Air 11/08/16 23:55 36.7 80 18 106/72 97 Room Air 11/08/16 15:35 Room Air 11/08/16 15:15 37.0 88 18 112/77 94 Room Air 11/08/16 14:30 88 95 Laboratory Results 24 Hours: Test 11/09/16 07:45 White Blood Count 10.18 K/uL Red Blood Count 4.10 M/uL Hemoglobin 12.4 g/dL Hematocrit 37.3 % Mean Corpuscular Volume 91.0 fL Mean Corpuscular Hemoglobin 30.2 pg Mean Corpuscular Hemoglobin Concent 33.2 g/dl Platelet Count 344 K/uL Mean Platelet Volume 10.6 fL Neutrophils (%) (Auto) 66.7 % Lymphocytes (%) (Auto) 23.9 % Monocytes (%) (Auto) 8.7 % Eosinophils (%) (Auto) 0.1 % Basophils (%) (Auto) 0.2 % Neutrophils # (Auto) 6.79 K/uL Lymphocytes # (Auto) 2.43 K/uL Monocytes # (Auto) 0.89 K/uL Eosinophils # (Auto) 0.01 K/uL Basophils # (Auto) 0.02 K/uL Assessment & Plan Assessment: Bilateral knee pain -was given b/l cortisone injections in [place]une by dr collier which provided good relief, consult done by dr ash yesterday and agrees she may benefit from repeat injections. these were given today. will assess her response tomorrow. ice as needed
[2016-11-09] MEDS: CEFTRIAXONE SOD INJ 1 GM in DEXTROSE 5% ADD-VANTAGE 50ML 50 ML IV SCH (13:57)
[2016-11-09] MEDS: ACETAMINOPHEN 325 MG TAB PO PRN (14:00)
[2016-11-09 15:10] VITALS: BP 116/78; PULSE 80; TEMP 36.4; O2SAT 94
[2016-11-09] MEDS: TRAMADOL HCL 50 MG TAB PO PRN (15:45)
--- NOTE | 2016-11-09 16:05 | Progress Note ---
Subjective Date of Service: Nov 09, 2016. Subjective Pt evaluation today including: conversation w/ patient, chart review, lab review Voiding: no voiding problems 41 yo female with right flank and low back pain. Pt reports her period has started and she now has cramps this morning. Some right low back pain persists, but otherwise feels well. Denies dysuria or hematuria. No ureteral stones noted on CT. She does have a right renal stone, which was not visualized on KUB. + hx of gout. She reports a previous hx of stones requiring a medication to "dissolve them." UC&S noted to be positive growing boyd sensitive e coli. Cr of 1.4 today. Problem List Medical Problems: (1) Constipation Status: Acute (2) Edema Status: Acute (3) Flank pain Status: Acute (4) Knee pain Status: Acute (5) UTI (urinary tract infection) Status: Acute Review of Systems Constitutional: No chills, No fever Respiratory: No shortness of breath Cardiac: No chest pain Abdomen: + pain (lower abdominal pain and cramps; RLQ ), No nausea, No vomiting Female : No dysuria, No hematuria Heme: No abnormal bleeding/bruising Objective Vital Signs Date Time Temp Pulse Resp B/P Pulse Ox O2 Delivery O2 Flow Rate FiO2 11/09/16 09:00 85 108/77 94 Room Air 11/09/16 08:05 Room Air 11/09/16 07:07 36.7 83 16 109/67 95 Room Air 11/09/16 00:43 Room Air 11/08/16 23:55 36.7 80 18 106/72 97 Room Air Physical Exam General Appearance: no apparent distress, + obese Eyes: normal inspection ENT: hearing grossly normal Neck: no JVD Respiratory/Chest: no respiratory distress, no accessory muscle use Cardiovascular: no JVD Extremities: normal inspection Neurologic/Psychiatric: alert, normal mood/affect, oriented x 3 Skin: normal color Comments: Negative for CVA tenderness. Laboratory Results Last 24 Hours Test 11/08/16 17:02 11/08/16 20:46 11/09/16 00:00 11/09/16 06:00 Bedside Glucose 138 mg/dl 161 mg/dl 132 mg/dl 99 mg/dl Test 11/09/16 06:14 11/09/16 07:45 11/09/16 07:50 11/09/16 12:23 Sodium Level 142 mmol/L 143 mmol/L Potassium Level 3.7 mmol/L 3.7 mmol/L Chloride Level 109 mmol/L 109 mmol/L Carbon Dioxide Level 21 mmol/L 23 mmol/L Anion Gap 12.0 mmol/L 11.0 mmol/L Blood Urea Nitrogen 20 mg/dl 20 mg/dl Creatinine 1.30 mg/dl 1.40 mg/dl Est Creatinine Clear Calc Drug Dose 75.3 ml/min 69.9 ml/min Estimated GFR () 59.0 54.0 Estimated GFR (Non- 50.9 46.6 BUN/Creatinine Ratio 15.2 14.1 Random Glucose 99 mg/dl 92 mg/dl Calcium Level 9.3 mg/dl 9.1 mg/dl Magnesium Level 2.4 mg/dl White Blood Count 10.18 K/uL Red Blood Count 4.10 M/uL Hemoglobin 12.4 g/dL Hematocrit 37.3 % Mean Corpuscular Volume 91.0 fL Mean Corpuscular Hemoglobin 30.2 pg Mean Corpuscular Hemoglobin Concent 33.2 g/dl Platelet Count 344 K/uL Mean Platelet Volume 10.6 fL Neutrophils (%) (Auto) 66.7 % Lymphocytes (%) (Auto) 23.9 % Monocytes (%) (Auto) 8.7 % Eosinophils (%) (Auto) 0.1 % Basophils (%) (Auto) 0.2 % Neutrophils # (Auto) 6.79 K/uL Lymphocytes # (Auto) 2.43 K/uL Monocytes # (Auto) 0.89 K/uL Eosinophils # (Auto) 0.01 K/uL Basophils # (Auto) 0.02 K/uL RDW Standard Deviation 56.0 fL RDW Coefficient of Variation 16.7 % Immature Granulocyte % (Auto) 0.4 % Immature Granulocyte # (Auto) 0.04 K/uL Bedside Glucose 111 mg/dl Assessment and Plan A/P: UTI, right renal stone AFVSS. Continue IV abx for now. Would transition to 14 days of oral abx therapy such as Bactrim or Cipro once improved clinically. Would suspect her renal stone is likely composed of uric acid in the setting of gout and considering it is not visible on KUB. Would recommend she start potassium citrate if able, and consider metabolic stone eval with nephrology as an outpatient. May need to consider nephroureteroscopy for management of the stone in the future in the setting of solitary kidney. Will continue to follow along with primary service at this time.
--- NOTE | 2016-11-09 19:50 | Hospitalist Progress Note ---
Hospitalist Progress Note Date of Service Nov 09, 2016. Subjective Pt evaluation today including: conversation w/ patient, physical exam, chart review, lab review, review of studies, conversation w/ financial operations consultant (Dr. Zarco), review of inpatient medication list Voiding: no voiding problems Pain in right flank gone. Got her menses today and some of her right sided lower abd pain was likely menstrual cramps but she hasn't had a period in 2 years. Knees were injected today with steroids and already feeling better. She is awaiting approval for [facility] rehab Constitutional: No fever Respiratory: No shortness of breath Cardiovascular: No chest pain Abdomen: No pain All Other Systems: Reviewed and Negative Objective Vital Signs Date Time Temp Pulse Resp B/P Pulse Ox O2 Delivery O2 Flow Rate FiO2 11/09/16 15:45 Room Air 11/09/16 15:10 36.4 80 18 116/78 94 Room Air 11/09/16 09:00 85 108/77 94 Room Air 11/09/16 08:05 Room Air 11/09/16 07:07 36.7 83 16 109/67 95 Room Air 11/09/16 00:43 Room Air 11/08/16 23:55 36.7 80 18 106/72 97 Room Air Physical Exam General Appearance: WD/WN, no apparent distress, + obese Eyes: normal inspection, sclerae normal Respiratory/Chest: lungs clear, normal breath sounds, no respiratory distress, no accessory muscle use Cardiovascular: regular rate, rhythm, no edema, no gallop, no murmur Abdomen: normal bowel sounds, non tender, soft (and no CVA tenderness) Extremities: normal inspection, no pedal edema, no calf tenderness Neurologic/Psychiatric: alert Skin: normal color, warm/dry, no rash Laboratory Results Last 24 Hours Test 11/08/16 20:46 11/09/16 00:00 11/09/16 06:00 11/09/16 06:14 Bedside Glucose 161 mg/dl 132 mg/dl 99 mg/dl Sodium Level 142 mmol/L Potassium Level 3.7 mmol/L Chloride Level 109 mmol/L Carbon Dioxide Level 21 mmol/L Anion Gap 12.0 mmol/L Blood Urea Nitrogen 20 mg/dl Creatinine 1.30 mg/dl Est Creatinine Clear Calc Drug Dose 75.3 ml/min Estimated GFR () 59.0 Estimated GFR (Non- 50.9 BUN/Creatinine Ratio 15.2 Random Glucose 99 mg/dl Calcium Level 9.3 mg/dl Magnesium Level 2.4 mg/dl Test 11/09/16 07:45 11/09/16 07:50 11/09/16 12:23 11/09/16 17:04 White Blood Count 10.18 K/uL Red Blood Count 4.10 M/uL Hemoglobin 12.4 g/dL Hematocrit 37.3 % Mean Corpuscular Volume 91.0 fL Mean Corpuscular Hemoglobin 30.2 pg Mean Corpuscular Hemoglobin Concent 33.2 g/dl Platelet Count 344 K/uL Mean Platelet Volume 10.6 fL Neutrophils (%) (Auto) 66.7 % Lymphocytes (%) (Auto) 23.9 % Monocytes (%) (Auto) 8.7 % Eosinophils (%) (Auto) 0.1 % Basophils (%) (Auto) 0.2 % Neutrophils # (Auto) 6.79 K/uL Lymphocytes # (Auto) 2.43 K/uL Monocytes # (Auto) 0.89 K/uL Eosinophils # (Auto) 0.01 K/uL Basophils # (Auto) 0.02 K/uL RDW Standard Deviation 56.0 fL RDW Coefficient of Variation 16.7 % Immature Granulocyte % (Auto) 0.4 % Immature Granulocyte # (Auto) 0.04 K/uL Sodium Level 143 mmol/L Potassium Level 3.7 mmol/L Chloride Level 109 mmol/L Carbon Dioxide Level 23 mmol/L Anion Gap 11.0 mmol/L Blood Urea Nitrogen 20 mg/dl Creatinine 1.40 mg/dl Est Creatinine Clear Calc Drug Dose 69.9 ml/min Estimated GFR () 54.0 Estimated GFR (Non- 46.6 BUN/Creatinine Ratio 14.1 Random Glucose 92 mg/dl Calcium Level 9.1 mg/dl Bedside Glucose 111 mg/dl 140 mg/dl Assessment and Plan A 41-year-old female with a h/o Rafke's Cleft cyst, right papilledema and headache syndrome (possible Pseudotumor cerebri), secondary amenorrhea, obesity , HTN, gout, kidney stones, congenital absence of left kidney, CKD Stage III, hypothyroidism, who presented with right sided flank pain, nephrolithiasis, bilateral acute on chronic knee pain, and right middle toe pain. Joint pains thought to be gout related. Renal US showed: 1. No right hydronephrosis. 2. Suspected right-sided nephrolithiasis. 3. Nonvisualization of the left kidney, as shown on exam of May 08, 2015. CT Abd/Pel without contrast showed: 1. Right-sided nephrolithiasis. No hydronephrosis. 2. Absent left kidney, unchanged. 3. No definite bowel wall thickening or obstruction. 4. Normal appendix 1. Right-sided nephrolithiasis, Consult urologist appreciated. No hydro on US or CT, no ureterolithiasis on imaging but could be uric acid stones. Started on IV ceftriaxone for UTI, no signs of sepsis -appreciate further Urology recommendations: "Continue IV abx for now. Would transition to 14 days of oral abx therapy such as Bactrim or Cipro once improved clinically. Would suspect her renal stone is likely composed of uric acid in the setting of gout and considering it is not visible on KUB. Would recommend she start potassium citrate if able, and consider metabolic stone eval with nephrology as an outpatient. May need to consider nephroureteroscopy for management of the stone in the future in the setting of solitary kidney." -Will d/w her Research Attorney tomorrow about starting potassium citrate in context of CKD STage III -would prefer Cipro renally dosed for her 14 day course 2. Urinary tract infection. -f/u urine culture with E. coli pansensitive -continue IV ceftriaxone and switch to Cipro for dc for total 14 days 3. Suspected acute gout exacerbation. Has long h/o joint pains mostly in knees requiring PT and Ortho evaluations at [facility] in the past. Uric acid level here is high at 8.8 -continue oral prednisone and taper down -consider starting allopurinol? -Unable to give colchicine and ibuprofen or aspirin due to kidney dysfunction. -Consult orthopedic surgeon appreciated--> performed steroid injections of bilat knees on 11/09/16 and helping with pain -PT/OT recommending acute rehab placement-pt awaiting approval from insurance for [facility] -pain control with prednisone, tylenol, tramadol, and voltaren gel but caution with tramadol given h/o drug abuse Hypothyroidism, pituitary gland tumor, secondary amenorrhea, obesity. Ongoing outpt workups with Endocrine, Neurology (for pseudotumor cerebri, was to have LP today for opening pressure), and Neuroendocrine as well as NS (no surgery indicated). TSH here normal. Started menses today after progesterone course last week -continue synthroid -f/u with Endo as scheduled Hypertension. STable - Continue metoprolol Deep venous thrombosis and gastrointestinal prophylaxis with heparin SQ and PPI Full code.
[2016-11-09 23:55] VITALS: BP 146/87; PULSE 79; TEMP 36.3; O2SAT 97
[2016-11-10] MEDS: ACETAMINOPHEN 325 MG TAB PO PRN ×3 (01:20→13:11)
[2016-11-10] MEDS: LEVOTHYROXINE 125 MCG TAB PO SCH (05:59)
[2016-11-10 07:35] VITALS: BP 118/87; PULSE 71; TEMP 36.5; O2SAT 96
[2016-11-10 07:47] LABS: BUN/CREATININE RATIO 16.9 (10-20); CALCIUM 9.1 mg/dl (8.5-10.1); CREATININE 1.4 mg/dl (0.60-1.20); POTASSIUM 4.2 mmol/L (3.5-5.1)
--- NOTE | 2016-11-10 07:47 | Progress Note ---
Subjective Date of Service: Nov 10, 2016. Subjective Pt evaluation today including: conversation w/ patient, chart review Voiding: no voiding problems 41 yo female with UTI, nephrolithiasis, and solitary kidney. She reports her back pain has improved this morning. Denies any dysuria or hematuria. Continues to have menstrual cramps, but otherwise feels well. She remains on ceftriaxone for UTI. Problem List Medical Problems: (1) Constipation Status: Acute (2) Edema Status: Acute (3) Flank pain Status: Acute (4) Knee pain Status: Acute (5) UTI (urinary tract infection) Status: Acute Review of Systems Constitutional: No chills, No fever Respiratory: No shortness of breath Cardiac: No chest pain Abdomen: No nausea, No pain, No vomiting Heme: No abnormal bleeding/bruising Objective Vital Signs Date Time Temp Pulse Resp B/P Pulse Ox O2 Delivery O2 Flow Rate FiO2 11/10/16 07:35 36.5 71 16 118/87 96 Room Air 11/10/16 00:20 Room Air 11/09/16 23:55 36.3 79 20 146/87 97 Room Air 11/09/16 15:45 Room Air 11/09/16 15:10 36.4 80 18 116/78 94 Room Air 11/09/16 09:00 85 108/77 94 Room Air 11/09/16 08:05 Room Air Physical Exam General Appearance: no apparent distress, + obese Eyes: normal inspection ENT: hearing grossly normal Neck: no JVD Respiratory/Chest: no respiratory distress, no accessory muscle use Cardiovascular: no JVD Extremities: normal inspection Neurologic/Psychiatric: alert, normal mood/affect, oriented x 3 Skin: normal color Laboratory Results Last 24 Hours Test 11/09/16 07:45 11/09/16 07:50 11/09/16 12:23 11/09/16 17:04 White Blood Count 10.18 K/uL Red Blood Count 4.10 M/uL Hemoglobin 12.4 g/dL Hematocrit 37.3 % Mean Corpuscular Volume 91.0 fL Mean Corpuscular Hemoglobin 30.2 pg Mean Corpuscular Hemoglobin Concent 33.2 g/dl Platelet Count 344 K/uL Mean Platelet Volume 10.6 fL Neutrophils (%) (Auto) 66.7 % Lymphocytes (%) (Auto) 23.9 % Monocytes (%) (Auto) 8.7 % Eosinophils (%) (Auto) 0.1 % Basophils (%) (Auto) 0.2 % Neutrophils # (Auto) 6.79 K/uL Lymphocytes # (Auto) 2.43 K/uL Monocytes # (Auto) 0.89 K/uL Eosinophils # (Auto) 0.01 K/uL Basophils # (Auto) 0.02 K/uL RDW Standard Deviation 56.0 fL RDW Coefficient of Variation 16.7 % Immature Granulocyte % (Auto) 0.4 % Immature Granulocyte # (Auto) 0.04 K/uL Sodium Level 143 mmol/L Potassium Level 3.7 mmol/L Chloride Level 109 mmol/L Carbon Dioxide Level 23 mmol/L Anion Gap 11.0 mmol/L Blood Urea Nitrogen 20 mg/dl Creatinine 1.40 mg/dl Est Creatinine Clear Calc Drug Dose 69.9 ml/min Estimated GFR () 54.0 Estimated GFR (Non- 46.6 BUN/Creatinine Ratio 14.1 Random Glucose 92 mg/dl Calcium Level 9.1 mg/dl Bedside Glucose 111 mg/dl 140 mg/dl Test 11/09/16 21:04 11/10/16 06:35 Bedside Glucose 139 mg/dl Assessment and Plan A/P: UTI, right renal stone, solitary right kidney AFVSS. Would transition to 14 days of oral abx therapy such as Bactrim or Cipro prior to d/c home. Would suspect her renal stone is likely composed of uric acid in the setting of gout and considering it is not visible on KUB. Would recommend she start potassium citrate if able, and consider metabolic stone eval with nephrology as an outpatient. May need to consider nephroureteroscopy for management of the stone in the future in the setting of solitary kidney. Pt OK for d/c home. Recommend d/c home on oral abx such as Bactrim or Cipro and potassium citrate. Will arrange for outpatient f/u in our office in 2-3 weeks. Thanks for allowing us to participate in this pt's care. Recall PRN issues.
[2016-11-10] MEDS: METOPROLOL SUCC 50MG EXT REL TAB PO SCH (08:47)
[2016-11-10] MEDS: DICLOFENAC SOD 1% GEL 100 GM TUBE EXT SCH ×5 (08:47→21:00)
[2016-11-10] MEDS: CALCIUM 600MG + VIT D 400 IU TAB PO SCH (08:48)
[2016-11-10] MEDS: PANTOprazole SOD 40 MG TAB PO SCH (08:48)
[2016-11-10] MEDS: HEPARIN SOD 5000 UNIT/0.5 ML CARP SQ SCH ×2 (08:57→21:13)
[2016-11-10] MEDS ORDERED: VLTG EXT (11:19)
[2016-11-10] MEDS ORDERED: PRD20 PO (11:19)
[2016-11-10] MEDS ORDERED: CIPR1TAB11 PO (11:19)
[2016-11-10] MEDS: CEFTRIAXONE SOD INJ 1 GM in DEXTROSE 5% ADD-VANTAGE 50ML 50 ML IV SCH (13:04)
[2016-11-10 15:10] VITALS: BP 118/81; PULSE 74; TEMP 36.5; O2SAT 92
--- NOTE | 2016-11-10 22:29 | Hospitalist Progress Note ---
Hospitalist Progress Note Date of Service Nov 10, 2016. Subjective Pt evaluation today including: conversation w/ patient, physical exam, chart review, lab review, review of studies, review of inpatient medication list PO Intake: jeff po Voiding: no voiding problems Pt feeling better, no more right flank pain, knees are better and was able to ambulate with walker to bathroom and back today. Awaiting SNF placement All Other Systems: Reviewed and Negative Objective Vital Signs Date Time Temp Pulse Resp B/P Pulse Ox O2 Delivery O2 Flow Rate FiO2 11/10/16 15:45 Room Air 11/10/16 15:10 36.5 74 18 118/81 92 Room Air 11/10/16 08:30 Room Air 11/10/16 07:35 36.5 71 16 118/87 96 Room Air 11/10/16 00:20 Room Air 11/09/16 23:55 36.3 79 20 146/87 97 Room Air Physical Exam General Appearance: WD/WN, no apparent distress, + obese Eyes: normal inspection Neck: trachea midline Respiratory/Chest: lungs clear, normal breath sounds, no respiratory distress, no accessory muscle use Cardiovascular: regular rate, rhythm, no edema, no gallop, no murmur Abdomen: normal bowel sounds, non tender, soft, no organomegaly Extremities: no calf tenderness, + pertinent finding (mild effusion knees bilat , trace pitting edema right foot, no erythema, no tenderness) Neurologic/Psychiatric: alert, normal mood/affect, oriented x 3 Skin: normal color, warm/dry, no rash Laboratory Results Last 24 Hours Test 11/10/16 06:35 11/10/16 07:46 11/10/16 11:38 11/10/16 16:54 Sodium Level 141 mmol/L Potassium Level 4.2 mmol/L Chloride Level 108 mmol/L Carbon Dioxide Level 24 mmol/L Anion Gap 9.0 mmol/L Blood Urea Nitrogen 24 mg/dl Creatinine 1.40 mg/dl Est Creatinine Clear Calc Drug Dose 69.9 ml/min Estimated GFR () 54.0 Estimated GFR (Non- 46.6 BUN/Creatinine Ratio 16.9 Random Glucose 119 mg/dl Calcium Level 9.1 mg/dl Bedside Glucose 122 mg/dl 148 mg/dl 110 mg/dl Test 11/10/16 20:58 Bedside Glucose 163 mg/dl Assessment and Plan A 41-year-old female with a h/o Rafke's Cleft cyst, right papilledema and headache syndrome (possible Pseudotumor cerebri), secondary amenorrhea, obesity , HTN, gout, kidney stones, congenital absence of left kidney, CKD Stage III, hypothyroidism, who presented with right sided flank pain, nephrolithiasis, bilateral acute on chronic knee pain, and right middle toe pain. Joint pains thought to be gout related. Renal US showed: 1. No right hydronephrosis. 2. Suspected right-sided nephrolithiasis. 3. Nonvisualization of the left kidney, as shown on exam of May 08, 2015. CT Abd/Pel without contrast showed: 1. Right-sided nephrolithiasis. No hydronephrosis. 2. Absent left kidney, unchanged. 3. No definite bowel wall thickening or obstruction. 4. Normal appendix 1. Right-sided nephrolithiasis, Consult urologist appreciated. No hydro on US or CT, no ureterolithiasis on imaging but could be uric acid stones. Started on IV ceftriaxone for UTI, no signs of sepsis -appreciate further Urology recommendations: "Continue IV abx for now. Would transition to 14 days of oral abx therapy such as Bactrim or Cipro once improved clinically. Would suspect her renal stone is likely composed of uric acid in the setting of gout and considering it is not visible on KUB. Would recommend she start potassium citrate if able, and consider metabolic stone eval with nephrology as an outpatient. May need to consider nephroureteroscopy for management of the stone in the future in the setting of solitary kidney." - d/w her Plow Holder about starting potassium citrate in context of CKD STage III and agree to start low dose 15 meq once daily and check PRP in 1 week -would prefer Cipro renally dosed for her 14 day course 2. Urinary tract infection. -f/u urine culture with E. coli pansensitive -continue IV ceftriaxone and switch to Cipro for dc for total 14 days 3. Suspected acute gout exacerbation. Has long h/o joint pains mostly in knees requiring PT and Ortho evaluations at [facility] in the past. Uric acid level here is high at 8.8 -continue oral prednisone and taper down -consider starting allopurinol in the future as outpt -Unable to give colchicine and ibuprofen or aspirin due to kidney dysfunction. -Consult orthopedic surgeon appreciated--> performed steroid injections of bilat knees on 11/09/16 and helping with pain -PT/OT recommending acute rehab placement-pt awaiting approval for SNF -pain control with prednisone, tylenol,will d/c tramadol for h/o drug abuse, continue voltaren gel Hypothyroidism, pituitary gland tumor, secondary amenorrhea, obesity. Ongoing outpt workups with Endocrine, Neurology (for pseudotumor cerebri, was to have LP today for opening pressure), and Neuroendocrine as well as NS (no surgery indicated). TSH here normal. Started menses here after progesterone course last week -continue synthroid -f/u with Endo as scheduled Hypertension. STable - Continue metoprolol Deep venous thrombosis and gastrointestinal prophylaxis with heparin SQ and PPI Full code.
[2016-11-10 23:11] VITALS: BP 106/75; PULSE 70; TEMP 36.8; O2SAT 94
[2016-11-11] MEDS: ACETAMINOPHEN 325 MG TAB PO PRN ×2 (01:00→06:20)
[2016-11-11] MEDS: LEVOTHYROXINE 125 MCG TAB PO SCH (05:29)
[2016-11-11 07:01] LABS: BUN/CREATININE RATIO 21.5 (10-20); CREATININE 1.3 mg/dl (0.60-1.20); POTASSIUM 4.1 mmol/L (3.5-5.1)
[2016-11-11 07:12] VITALS: BP 113/76; PULSE 62; TEMP 36.4; O2SAT 94
[2016-11-11] MEDS: DICLOFENAC SOD 1% GEL 100 GM TUBE EXT SCH (08:17)
[2016-11-11] MEDS ORDERED: POTASSIUM CITRATE 10 MEQ TAB PO SCH (09:00)
[2016-11-11] MEDS ORDERED: CIPROFLOXACIN 250 MG TAB PO SCH (09:00)
[2016-11-11] MEDS: METOPROLOL SUCC 50MG EXT REL TAB PO SCH (09:51)
[2016-11-11] MEDS: PANTOprazole SOD 40 MG TAB PO SCH (09:51)
[2016-11-11] MEDS: CALCIUM 600MG + VIT D 400 IU TAB PO SCH (09:53)
[2016-11-11] MEDS: HEPARIN SOD 5000 UNIT/0.5 ML CARP SQ SCH (09:57)
[2016-11-11 09:58] VITALS: BP 111/75; PULSE 62
[2016-11-11] MEDS ORDERED: PRT40 PO (10:31)
[2016-11-11] MEDS ORDERED: URC10 PO (10:31)
--- NOTE | 2016-11-11 10:40 | Discharge Instructions ---
Discharge Instructions Admission Reason for Admission: Weakness, Nephrolithiasis and Right flank pain Discharge Discharge Diagnosis / Problem: Nephrolithiasis, Severe knee and right foot pain Discharge Goals Goal(s): Improve disease control, Therapeutic intervention Activity Recommendations Activity Level: Assistance Required Therapies: Physical Therapy, Weight Bearing Status (Full), Occupational Therapy . Additional Information Patient informed of condition: Yes Advance Directives: No DNR: No Level of Care: Skilled Communicable Disease: No Prognosis: Stable Oxygen at (LPM): N/A Curiel Catheter: No Instructions / Follow-Up Instructions / Follow-Up A 41-year-old female with a h/o 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 Joint pains thought to be gout related. Renal US showed: 1. No right hydronephrosis. 2. Suspected right-sided nephrolithiasis. 3. Nonvisualization of the left kidney, as shown on exam of May 08, 2015. CT Abd/Pel without contrast showed: 1. Right-sided nephrolithiasis. No hydronephrosis. 2. Absent left kidney, unchanged. 3. No definite bowel wall thickening or obstruction. 4. Normal appendix Right-sided nephrolithiasis, Consult urologist appreciated. No hydro on US or CT , no ureterolithiasis on imaging but could be uric acid stones. Started on IV ceftriaxone for UTI, no signs of sepsis -appreciate further Urology recommendations: "Continue IV abx for now. Would transition to 14 days of oral abx therapy such as Bactrim or Cipro once improved clinically. Would suspect her renal stone is likely composed of uric acid in the setting of gout and considering it is not visible on KUB. Would recommend she start potassium citrate if able, and consider metabolic stone eval with nephrology as an outpatient. May need to consider nephroureteroscopy for management of the stone in the future in the setting of solitary kidney." - d/w her Traffic Law Attorney about starting potassium citrate in context of CKD STage III and agree to start low dose 15 meq once daily and check PRP in 1 week -would prefer Cipro over Bactrim, renally dosed for her 14 day course -f/u with Urology within 2 weeks -start Potassium citrate 15 meq once daily for uric acid stones -start allopurinol 100mg po bid for prevention as well -check BMP 1 week Urinary tract infection. -f/u urine culture with E. coli pansensitive -continue IV ceftriaxone and switch to Cipro for dc for total 14 days Suspected acute gout exacerbation in knees and right toe/foot. Has long h/o joint pains mostly in knees requiring PT and Ortho evaluations at [facility] in the past. Uric acid level here is high at 8.8 and with suspected uric acid kidney stones -continue oral prednisone and taper down -PPI for gastric protection while on steroids - starting allopurinol as above -Unable to give colchicine and ibuprofen or aspirin due to kidney dysfunction. -Consult orthopedic surgeon appreciated--> performed steroid injections of bilat knees on 11/09/16 and helping with pain -PT/OT recommending rehab placement -pain control with prednisone, tylenol,will d/c tramadol for h/o drug abuse, continue voltaren gel Hypothyroidism, pituitary gland tumor, secondary amenorrhea, obesity. Ongoing outpt workups with Endocrine, Neurology (for pseudotumor cerebri, was to have LP on day of admission for opening pressure), and Neuroendocrine as well as NS ( no surgery indicated). TSH here normal. Started menses here after progesterone course last week -continue synthroid -f/u with Endo as scheduled Hypertension. Stable - Continue metoprolol Deep venous thrombosis and gastrointestinal prophylaxis with heparin SQ and PPI Full code. Current Hospital Diet Patient's current hospital diet: Regular Diet Discharge Diet Recommended Diet: Regular Diet Procedures Procedures Performed: Abdominal Xray CT Abd/Pelvis Renal US Pending Studies Studies pending at discharge: no Physician Orders On Transfer Special Precautions: Fall precautions Dressing Changes: N/A IV Therapy: N/A Vital Signs: Routine Weigh: Routine Additional Orders: Follow up with Urology Dr. Vladimir Zarco within 2 weeks for nephrolithiasis. Follow up with Dr. Espinosa of Nephrology within 2 weeks-patient already has appointment scheduled. Follow up with PCP Dana MOORE within 1 week after discharge. Check BMP in 1 week since starting potassium citrate for suspected uric acid stones in setting of CKD Stage III. POLST Discussion: Not Applicable Laboratory Results Hemoglobin A1c Test 11/07/16 13:20 Range/Units Estimated Average Glucose 111 mg/dl Hemoglobin A1c 5.5 4.5-5.6 % Medical Emergencies . Who to Call and When: Medical Emergencies: If at any time you feel your situation is an emergency, please call 911 immediately. . Non-Emergent Contact Non-Emergency issues call your: Primary Care Provider Call Non-Emergent contact if: you have a fever, your pain is not controlled, your pain is worsening, your pain is unusual for you, your pain is concerning you, you have any medication questions . . "Provider Documentation" section prepared by Allison Rinaldi. Core Measure Problem Core Measures: None
[2016-11-11] MEDS ORDERED: ALLO100T PO (11:40)
[2016-11-11 12:45] VITALS: BP 111/75; PULSE 62; TEMP 36.4; O2SAT 94
--- NOTE | 2016-11-11 22:22 | Discharge Summary ---
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 COMPARISON STUDY: Renal ultrasound May 08, 2015. TECHNIQUE: Sonography of the kidneys and the urinary bladder was performed. FINDINGS: This exam is compromised by suboptimal penetration. There is no right hydronephrosis. The right kidney measures 12.4 x 4.6 x 5.9 cm. Echogenic foci within the renal sinus suggest calculi measuring up to approximately 6 mm. The left kidney was not visualized, as before. The right ureteral jet was identified. Bladder suboptimally assessed due to underdistention. IMPRESSION: 1. No right hydronephrosis. 2. Suspected right-sided nephrolithiasis. 3. Nonvisualization of the left kidney, as shown on exam of May 08, 2015. KUB CLINICAL HISTORY: Right flank pain. COMPARISON STUDY: Renal ultrasound May 08, 2015 and November 07, 2016. FINDINGS: Pelvic calcifications likely reflect phleboliths although make evaluation for ureteral calculi difficult. The bowel gas pattern is normal. No renal calculi are identified although the right renal shadow is partially obscured by stool. IMPRESSION: 1. No right renal calculi identified although the right renal shadow is largely obscured by stool. 2. Numerous pelvic calcifications. These likely reflect phleboliths although distal ureteral calculi cannot be excluded on this exam. ABDOMEN AND PELVIS CT WITHOUT CONTRAST CT DOSE: 1112.82 mGycm HISTORY: ? Ureteral stone; right flank pain; gout TECHNIQUE: Multiaxial CT images of the abdomen and pelvis were performed without the use of intravenous and oral contrast according to the standard department stone protocol. COMPARISON STUDY: Renal ultrasound 11/07/2016. FINDINGS: Calcified granuloma the right lower lobe. Bilateral L4 spondylolysis with associated grade I anterolisthesis. The unenhanced liver, spleen, adrenal glands, gallbladder, and pancreas are unremarkable. The left kidney is absent. There are multiple stones within the right kidney with the largest measuring 4 mm within the lower pole. Normal caliber left ureter. There is also a normal right ureter. No ureteral calculi identified. The bladder is unremarkable. The uterus and bilateral adnexa are unremarkable. No pelvic free fluid. Suboptimal evaluation for bowel pathology due to the lack of intravenous and oral contrast. However, there is no definite bowel wall thickening or obstruction. Normal appendix. No retroperitoneal lymphadenopathy. IMPRESSION: 1. Right-sided nephrolithiasis. No hydronephrosis. 2. Absent left kidney, unchanged. 3. No definite bowel wall thickening or obstruction. 4. Normal appendix. Bilateral knee arthrocentesis with steroid injection Consultations: Orthopedics Urology Medication Reconciliation New Medications: Allopurinol (Zyloprim) 100 Mg Tab 1 TAB PO BID for 30 Days, #60 TAB 5 Refills Ciprofloxacin Tab (Cipro) 250 Mg Tab 250 MG PO BID for 12 Days, #24 TAB Diclofenac Sod (Voltaren) 100 Appln/100 Gm Gel 1 APPLN EXT QID for 30 Days Pantoprazole (Pantoprazole Sodium) 40 Mg Tab 40 MG PO QAM for 7 Days, #7 TAB while on prednisone Potassium Citrate (Potassium Citrate) 10 Meq Tab 15 MEQ PO QAM for 30 Days, TAB Prednisone (Prednisone) 20 Mg Tab 40 MG PO DAILY for 6 Days, TAB x 2 days then 20 mg daily x 2 days then 10mg daily x 2 days then STOP Continued Medications: Acetaminophen (Tylenol) 500 Mg Tab 1000 MG PO Q6H PRN for Headache or Pain, TAB Calcium (Calcium) 600 Mg Tab 600 MG PO DAILY Levothyroxine Sodium (Levothyroxine Sodium) 125 Mcg Tab 1 TAB PO DAILY for 90 Days, #90 TAB 3 Refills Metoprolol Succinate (Metoprolol Succinate ER) 100 Mg Tabcr 100 MG PO DAILY Discontinued Medications: Sulfa/Trimethoprim (Bactrim Ds 800MG/160MG) Tab 1 TAB PO BID for 10 Days, #20 TAB Tramadol (Ultram) 50 Mg Tab 1-2 TABS PO Q6 PRN for Pain, #14 TAB Referrals At Discharge Follow up Referrals: Speech Instructor Referral - Within a Month with Nabor Espinosa M.D. Physician Referral - Within 1 Week with Dana Harrington C.REloina Urologist Referral - Within 2 Weeks with Vladimir Zarco MD, Urology Discharge Exam Physical Exam General Appearance: WD/WN, no apparent distress, + obese Eyes: normal inspection Neck: trachea midline Respiratory/Chest: lungs clear, normal breath sounds, no respiratory distress, no accessory muscle use Cardiovascular: regular rate, rhythm, no edema, no gallop, no murmur Abdomen: normal bowel sounds, non tender, soft, no organomegaly Extremities: no calf tenderness, + pertinent finding (mild effusion knees bilat , trace pitting edema right foot, no erythema, no tenderness) Neurologic/Psychiatric: alert, normal mood/affect, oriented x 3 Skin: normal color, warm/dry, no rash Review of Systems: Constitutional: No chills, No fever Eyes: No problem reported ENT: No problem reported Respiratory: No shortness of breath Cardiovascular: No chest pain Abdomen: No nausea, No pain Musculoskeletal: + joint pain Genitourinary - Female: No problem reported Neurologic: + balance problems Psychiatric: No problem reported Endocrine: No problem reported Hematologic / Lymphatic: No problem reported Integumentary: No problem reported Hospital Course A 41-year-old female with a h/o 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 Joint pains thought to be gout related. Renal US showed: 1. No right hydronephrosis. 2. Suspected right-sided nephrolithiasis. 3. Nonvisualization of the left kidney, as shown on exam of May 08, 2015. CT Abd/Pel without contrast showed: 1. Right-sided nephrolithiasis. No hydronephrosis. 2. Absent left kidney, unchanged. 3. No definite bowel wall thickening or obstruction. 4. Normal appendix Right-sided nephrolithiasis, Consult urologist appreciated. No hydro on US or CT , no ureterolithiasis on imaging but could be uric acid stones. Started on IV ceftriaxone for UTI, no signs of sepsis -appreciate further Urology recommendations: "Continue IV abx for now. Would transition to 14 days of oral abx therapy such as Bactrim or Cipro once improved clinically. Would suspect her renal stone is likely composed of uric acid in the setting of gout and considering it is not visible on KUB. Would recommend she start potassium citrate if able, and consider metabolic stone eval with nephrology as an outpatient. May need to consider nephroureteroscopy for management of the stone in the future in the setting of solitary kidney." - d/w her Speech Instructor about starting potassium citrate in context of CKD STage III and agree to start low dose 15 meq once daily and check PRP in 1 week -would prefer Cipro over Bactrim, renally dosed for her 14 day course -f/u with Urology within 2 weeks -start Potassium citrate 15 meq once daily for uric acid stones -start allopurinol 100mg po bid for prevention as well -check BMP 1 week Urinary tract infection. -f/u urine culture with E. coli pansensitive -continue IV ceftriaxone and switch to Cipro for dc for total 14 days Suspected acute gout exacerbation in knees and right toe/foot. Has long h/o joint pains mostly in knees requiring PT and Ortho evaluations at [facility] in the past. Uric acid level here is high at 8.8 and with suspected uric acid kidney stones -continue oral prednisone and taper down -PPI for gastric protection while on steroids - starting allopurinol as above -Unable to give colchicine and ibuprofen or aspirin due to kidney dysfunction. -Consult orthopedic surgeon appreciated--> performed steroid injections of bilat knees on 11/09/16 and helping with pain -PT/OT recommending rehab placement -pain control with prednisone, tylenol,will d/c tramadol for h/o drug abuse, continue voltaren gel Hypothyroidism, pituitary gland tumor, secondary amenorrhea, obesity. Ongoing outpt workups with Endocrine, Neurology (for pseudotumor cerebri, was to have LP on day of admission for opening pressure), and Neuroendocrine as well as NS ( no surgery indicated). TSH here normal. Started menses here after progesterone course last week -continue synthroid -f/u with Endo as scheduled Hypertension. Stable - Continue metoprolol Deep venous thrombosis and gastrointestinal prophylaxis with heparin SQ and PPI Full code. Total Time Spent: Greater than 30 minutes This includes examination of the patient, discharge planning, medication reconciliation, and communication with other providers. Discharge Instructions Please refer to the electronic Patient Visit Report (Discharge Instructions) for additional information. Follow-Up PCP 1 week Urology 2 weeks Nephrology 1 month Additional Copies To Nabor Espinosa M.D.; Dana Harrington C.R.N.P; Vladimir Zarco MD, Urology
[2017-02-08] MEDS ORDERED: LEVO125T4 PO (12:18)
[2017-02-08] MEDS ORDERED: CALC600T37 PO (13:48)
== END 2016-11-11 13:29 | DRG 690 ==
LOC: ENRESERVTM → ENRESERVDT → EDBD 11:44 → C.EDC 11:45 → C.MSW 18:17
PROVIDERS: ADMIT Hospitalist; ATTEND Family Medicine
PROC: 3E0U33Z Introduction of Anti-inflammatory into Joints, Percutaneous Approach (ICD-10-PCS; principal; 2016-11-09)
DX: N39.0 Urinary tract infection, site not specified (principal); Z68.43 Body mass index [BMI] 50.0-59.9, adult; Q60.0 Renal agenesis, unilateral; N20.0 Calculus of kidney; M10.09 Idiopathic gout, multiple sites; I12.9 Hypertensive chronic kidney disease with stage 1 through stage 4 chronic kidney disease, or unspecified chronic kidney disease; N18.3 Chronic kidney disease, stage 3 (moderate); K59.00 Constipation, unspecified; E11.21 Type 2 diabetes mellitus with diabetic nephropathy; E03.9 Hypothyroidism, unspecified; M43.06 Spondylolysis, lumbar region; B96.20 Unspecified Escherichia coli [E. coli] as the cause of diseases classified elsewhere; Z87.891 Personal history of nicotine dependence; E66.01 Morbid (severe) obesity due to excess calories; M17.0 Bilateral primary osteoarthritis of knee

== ENCOUNTER → 2016-11-19 | Outpatient (CLI) | payer OTHER ==
[~2016-11-19] MED LIST changes: +ACET-1256 PO; +ACET-1325 PO; +ALLO100T PO; +AMT25 PO; +CABE0.5T PO; +CALC600T37 PO; +CEFA500C2 PO; +CIPR1TAB11 PO; +GLC/500 PO; +LEVO125T4 PO; -LEVO50TA6 PO; +ONDA4TAB10 SL; -OXYC1TAB3 PO; +POTA4.25 PO; +PRD20 PO; +PRED20TA PO; +PRT40 PO; +RIZA10TA19 PO; +SUMA100T15 PO; +SUMA100T16 PO; +TPRSR/100 PO; +URC10 PO; +VLTG EXT
[2016-11-19 08:20] LABS: HEMATOCRIT 41.3 % (37-47); MEAN CORPUSCULAR HEMOGLOBIN 29.4 pg (25-34); MEAN PLATELET VOLUME 10.6 fL (7.4-10.4); PLATELET COUNT 323 K/uL (130-400); RED BLOOD COUNT 4.49 M/uL (4.2-5.4); WHITE BLOOD COUNT 10.93 K/uL (4.8-10.8)
[2016-11-19 08:34] LABS: BLOOD UREA NITROGEN 33 mg/dl (7-18); BUN/CREATININE RATIO 22.1 (10-20); CALCIUM 8.9 mg/dl (8.5-10.1); CARBON DIOXIDE 27 mmol/L (21-32); CHLORIDE 104 mmol/L (98-107); GLUCOSE 89 mg/dl (70-99); POTASSIUM 3.8 mmol/L (3.5-5.1); SODIUM 140 mmol/L (136-145)
== END ==
LOC: C.LABCC 07:47
PROVIDERS: ATTEND Internal Medicine
DX: I10 Essential (primary) hypertension (principal)

== ENCOUNTER → 2016-11-22 | Outpatient (CLI) | payer OTHER ==
[2016-11-22 17:37] LABS: HEMATOCRIT 44.1 % (37-47); MEAN CELL VOLUME 92.8 fL (80-100); MEAN CORPUSCULAR HEMOGLOBIN 30.3 pg (25-34); MEAN CORPUSCULAR HGB CONC 32.7 g/dl (32-36); MEAN PLATELET VOLUME 10.8 fL (7.4-10.4); PLATELET COUNT 318 K/uL (130-400); RED BLOOD COUNT 4.75 M/uL (4.2-5.4); WHITE BLOOD COUNT 11.74 K/uL (4.8-10.8)
[2016-11-22 18:23] LABS: BLOOD UREA NITROGEN 22 mg/dl (7-18); BUN/CREATININE RATIO 18.6 (10-20); CALCIUM 8.9 mg/dl (8.5-10.1); CARBON DIOXIDE 27 mmol/L (21-32); CHLORIDE 105 mmol/L (98-107); GLUCOSE 84 mg/dl (70-99); PHOSPHORUS 3.2 mg/dl (2.5-4.9); POTASSIUM 4.1 mmol/L (3.5-5.1); SODIUM 140 mmol/L (136-145)
== END | disposition home or self-care (01) ==
LOC: C.LABPVFM 15:12
PROVIDERS: ATTEND Internal Medicine Endocrinology, Diabetes & Metabolism
DX: N18.3 Chronic kidney disease, stage 3 (moderate) (principal); N39.0 Urinary tract infection, site not specified

== ENCOUNTER → 2016-12-02 | Day surgery (SDC) | payer OTHER ==
[~2016-12-02] VITALS: Ht 160 cm; Wt 129.5 kg
[2016-12-02] VITALS (9 sets, daily range): BP systolic 98–124; BP diastolic 54–86; PULSE 64–82; TEMP 36.3–36.8; O2SAT 95–100; Ht 160 cm; Wt 129.5 kg
[~2016-12-02] MED LIST changes: +ACETAMINOPHEN 500 MG TAB PO ONE; +ACETAMINOPHEN 500 MG TAB PO PRN; -CIPR1TAB11 PO
--- NOTE | 2016-12-02 11:19 | DIAGNOSTIC IMAGING REPORT ---
FLUOROSCOPICALLY GUIDED LUMBAR PUNCTURE CLINICAL HISTORY: papilledema. FLUOROSCOPY TIME: 0.7 minutes. A single image submitted. PROCEDURE: The procedure, risks and benefits were discussed with the patient including the risk of spinal headache, bleeding and infection. The patient agreed to the procedure and informed written consent was obtained. The procedure was performed by Dr. Otero following a timeout. The left L5-S1 interlaminar space was targeted. Skin overlying the space was prepped and draped in the usual sterile fashion and local anesthesia was achieved with 1% lidocaine. Under intermittent fluoroscopic guidance, a 20-gauge x 15 cm Sprotte needle was inserted into the thecal sac. A total of 9cc of clear, colorless cerebral spinal fluid was obtained and spread amongst 4 vials. The patient tolerated the procedure well. There were no immediate complications. The specimens were sent to the laboratory at the request of the referring physician. IMPRESSION: Successful fluoroscopic guided lumbar puncture with removal of 9 cc of clear, colorless cerebral spinal fluid. No immediate complications. Opening pressure was 15 cm of H2O. Electronically signed by: Ayden Otero M.D. 12/02/2016 11:18 AM Dictated Date/Time: 12/02/2016 11:16 AM
[2016-12-02 11:20] LABS: CSF CHEMISTRY TUBE # 1; CSF TOTAL PROTEIN 37.8 mg/dl (15.0-45.0)
--- NOTE | 2016-12-02 11:21 | Discharge Instructions ---
Discharge Instructions Procedure Procedure Date: Dec 02, 2016. Reason for visit: Papilledema Right Eye W/Opening Pressure. Discharge Discharge Date: Dec 02, 2016. Discharge Diagnosis: same Instructions Activity Recommendations: No limitations Return to School/Work: no limitations Recommended Home Diet: Resume Previous Diet Provider Instructions: ACTIVITY RECOMMENDATIONS: * Rest today. * Resume regular activity in one day. MEDICATIONS: * May take Tylenol or Ibuprofen as needed for pain. DIET: * Resume previous diet. SPECIAL CARE INSTRUCTIONS: Call your doctor if: * Temperature above 101 degrees F. * Pain not relieved by pain medicine ordered. * Increased drainage or redness from incision. * Notify your doctor with any questions or concerns. Call your doctor or go to the nearest Emergency Department if you experience: * Increased chest pain or shortness of breath. FOLLOW UP VISIT: Follow-up with Referring Physician as scheduled. Allergies Coded Allergies: Peanut (Verified Allergy, Severe, ANAPHYLAXIS, 12/02/16) Amlodipine (Verified Allergy, Intermediate, FEET SWELL AND TURN RED, ) Banana (Verified Allergy, Intermediate, "DRUNKEN" FEELING, 12/02/16) NSAIDs (Verified Allergy, Unknown, hx chronic kidney diseas, 12/02/16) Uncoded Allergies: NACROTICS (Allergy, Unknown, hx of drug addiction, 11/07/16) January Diamond Recommendations: Call your doctor if: * Temperature above 101 degrees * Pain not relieved by pain medicine ordered * There is increased drainage or redness from any incision * You have any unanswered questions or concerns. Your Doctors Instructions noted above were prepared by provider Ayden Otero. Patient Signature Section: Patient Instructions Signature Page Gabrielle Tariq Patient (or Guardian) Signature/Date: I have read and understand the instructions given to me by my caregivers. Caregiver/RN/Doctor Signature/Date: The above-named patient and/or guardian has received patient instructions on this date. + Original Patient Signature Page (only) stays with chart. Please make copy for patient.
[2016-12-02 12:27] LABS: CSF APPEARANCE CLEAR; CSF COLOR COLORLESS
[2016-12-02 12:28] LABS: CSF XANTHOCHROMIC NO XANTHOCHROMIA
[2016-12-10 09:42] LABS: ALBUMIN 3.4 g/dL (3.5-4.9); IGG CSF 2.7 mg/dL (0.8-7.7); IGG SERUM 1140 mg/dL (694-1618); LYME DNA PCR CSF OR SYNOVIAL Not detected (Not Detected); LYME DNA SOURCE CSF; LYME IGG CSF NO BANDS DETECTED; LYME IGM CSF NO BANDS DETECTED; MYELIN BASIC PROTEIN 663 <2.0 mcg/L (0.0-4.0)
== END | disposition home or self-care (01) ==
LOC: C.ACU 08:04
PROVIDERS: ATTEND Psychiatry & Neurology Neurology
DX: H47.10 Unspecified papilledema (principal)

== ENCOUNTER → 2016-12-29 | Outpatient (CLI) | payer OTHER ==
[~2016-12-29] MED LIST changes: -ACETAMINOPHEN 500 MG TAB PO ONE; -ACETAMINOPHEN 500 MG TAB PO PRN; -LEVO125T4 PO; +LEVO125T5 PO; -PRD20 PO; -PRT40 PO
[2016-12-29 14:38] LABS: HEMATOCRIT 48.4 % (37-47); MEAN CELL VOLUME 94.2 fL (80-100); MEAN CORPUSCULAR HEMOGLOBIN 30.7 pg (25-34); MEAN CORPUSCULAR HGB CONC 32.6 g/dl (32-36); MEAN PLATELET VOLUME 11.3 fL (7.4-10.4); PLATELET COUNT 268 K/uL (130-400); RED BLOOD COUNT 5.14 M/uL (4.2-5.4); WHITE BLOOD COUNT 9.45 K/uL (4.8-10.8)
[2016-12-29 14:51] LABS: ALT/SGPT 39 U/L (12-78); AST/SGOT 23 U/L (15-37); BLOOD UREA NITROGEN 30 mg/dl (7-18); BUN/CREATININE RATIO 18.7 (10-20); CALCIUM 8.7 mg/dl (8.5-10.1); CARBON DIOXIDE 26 mmol/L (21-32); CHLORIDE 112 mmol/L (98-107); GLUCOSE 87 mg/dl (70-99); MAGNESIUM 2.6 mg/dl (1.8-2.4); POTASSIUM 4.2 mmol/L (3.5-5.1); SODIUM 144 mmol/L (136-145); URIC ACID 7.1 mg/dl (2.6-7.2)
[2016-12-29 14:54] LABS: MANUAL MICROSCOPIC REQUIRED? YES; URINE APPEARANCE CLOUDY (CLEAR); URINE BILIRUBIN NEG (NEG); URINE COLOR RED; URINE NITRITE NEG (NEG); URINE PH 5.5 (4.5-7.5); UROBILINOGEN NEG (NEG)
[2016-12-29 14:58] LABS: REVIEW REQ? NO
[2016-12-29 15:00] LABS: ALB/GLOB RATIO 0.7 (0.9-2); ALKALINE PHOSPHATASE 79 U/L (45-117); THYROID STIMULATING HORMONE 0.124 uIu/ml (0.300-4.500)
[2016-12-29 15:02] LABS: URINE BACTERIA NEG (NEG); URINE RBC >30 /hpf (0-4)
[2016-12-29 15:19] LABS: URINE PROTIEN/CREAT RATIO 0.6 (0-0.2); URINE TOTAL PROTEIN 60.6 mg/dl (0-11.9)
== END | disposition home or self-care (01) ==
LOC: C.LAB1850 12:59
PROVIDERS: ATTEND Internal Medicine Nephrology
DX: N18.3 Chronic kidney disease, stage 3 (moderate) (principal); R31.29 Other microscopic hematuria; E55.9 Vitamin D deficiency, unspecified; I10 Essential (primary) hypertension; D49.7 Neoplasm of unspecified behavior of endocrine glands and other parts of nervous system; N20.0 Calculus of kidney; E03.9 Hypothyroidism, unspecified; E06.3 Autoimmune thyroiditis

== ENCOUNTER 2017-01-14 19:10 | Emergency (ER) | payer OTHER ==
[~2017-01-14] VITALS: Ht 160 cm; Wt 130.0 kg
[~2017-01-14 19:10] MED LIST changes: -ACET-1256 PO; -ACET-1325 PO; -AMT25 PO; -CABE0.5T PO; -CALC600T37 PO; -CEFA500C2 PO; -GLC/500 PO; -LEVO125T5 PO; -ONDA4TAB10 SL; -POTA4.25 PO; -PRED20TA PO; -RIZA10TA19 PO; -SUMA100T15 PO; -SUMA100T16 PO; -TPRSR/100 PO
[2017-01-14 19:13] VITALS: TEMP 36.9; Ht 160 cm; Wt 130.0 kg
--- NOTE | 2017-01-14 20:46 | DIAGNOSTIC IMAGING REPORT ---
RIGHT WRIST W/NAVICULAR MIN 3 VIEWS CLINICAL HISTORY: right wrist pain Right pain COMPARISON: None. DISCUSSION: The bones and joint spaces appear intact. There is no evidence of fracture, dislocation or bony disease. There is no evidence for soft tissue swelling. IMPRESSION: Negative study. Electronically signed by: Donnie Weinstein M.D. 01/14/2017 8:44 PM Dictated Date/Time: 01/14/2017 8:44 PM
--- NOTE | 2017-01-14 20:47 | DIAGNOSTIC IMAGING REPORT ---
RIGHT ELBOW MIN 3 VIEWS ROUTINE CLINICAL HISTORY: right elbow pain Right pain COMPARISON: None. DISCUSSION: The bones and joint spaces appear intact. There is no evidence of fracture, dislocation or bony disease. There is no evidence for soft tissue swelling. IMPRESSION: Negative study. Electronically signed by: Donnie Weinstein M.D. 01/14/2017 8:45 PM Dictated Date/Time: 01/14/2017 8:45 PM
--- NOTE | 2017-01-14 21:06 | EMERGENCY ROOM VISIT NOTE ---
ED Visit Note First contact with patient: 19:40 CHIEF COMPLAINT: right hand pain HISTORY OF PRESENT ILLNESS: This 41 year old male patient presented to the emergency department ambulatory complaining of right hand pain. The patient does not recall any specific injury. The patient states that she has had pain for the last 2-3 days. She states the pain is in the right hand particularly over the first metacarpal. She states that occasionally radiates to the elbow. The patient rates the pain as sharp and 7/10. The patient denies any numbness or tingling. The patient does not have injuries to the wrist. Normal range of motion of the wrist. The patient has not had an injury to this hand before. REVIEW OF SYSTEMS: A 6 system review of systems was completed with positives and pertinent negatives in the HPI. ALLERGIES: Amlodipine, narcotics, NSAIDs, peanuts MEDICATIONS: See nursing notes PMH: Ganglion cyst, chronic kidney disease, pituitary tumor, hypoglycemia, hypertension, hypothyroid SOCIAL HISTORY: The patient lives locally. She does not smoke PHYSICAL EXAM: Vital Signs: Reviewed Nurse's notes, vital signs stable. GENERAL : This is a 41-year-old female, in no acute distress, but appears to be in pain , well-developed, well-nourished. MUSCULOSKELETAL: There is no deformity of the right hand. There is tenderness over the thenar eminence of the right hand. There is no thenar or hypothenar eminence atrophy. Normal thumb opposition to all fingers. Helmet Coverer strength 5/5. There is no laceration. Capillary refill less than 2 seconds. No tenderness of the fingers or wrist. Full range of motion of the wrist. No snuff box tenderness. Radial pulse 2+. NEURO: Alert and oriented to person, place, and time. Normal sensation to light and sharp touch. EMERGENCY DEPARTMENT COURSE: I examined the patient. An x-ray of the right hand and elbow were reviewed by myself and radiology and shows no obvious abnormality. The patient has atraumatic pain in the right hand that radiates elbow. She does not have any neck pain, numbness or tingling. This could potentially represent a tenosynovitis. The patient was placed in a removable thumb spica splint. She cannot take pain medications or NSAIDs. She requested prednisone and states she does well with it. She was given a small prednisone taper. She was advised to contact orthopedics on Tuesday to schedule a follow- up appointment for further evaluation and management. She should return with any worsening symptoms. The patient was discharged home in good condition. DISCHARGE INSTRUCTIONS: Wear the splint when up and about. Contact orthopedics to schedule a follow up appointment for further evaluation and management. Return with worsening symptoms. RIGHT ELBOW MIN 3 VIEWS ROUTINE CLINICAL HISTORY: right elbow pain Right pain COMPARISON: None. DISCUSSION: The bones and joint spaces appear intact. There is no evidence of fracture, dislocation or bony disease. There is no evidence for soft tissue swelling. IMPRESSION: Negative study. RIGHT WRIST W/NAVICULAR MIN 3 VIEWS CLINICAL HISTORY: right wrist pain Right pain COMPARISON: None. DISCUSSION: The bones and joint spaces appear intact. There is no evidence of fracture, dislocation or bony disease. There is no evidence for soft tissue swelling. IMPRESSION: Negative study. Current/Historical Medications Scheduled Acetazolamide (Acetazolamide), 1 TAB PO BID Allopurinol (Zyloprim), 1 TAB PO BID Amitriptyline HCl (Amitriptyline HCl), 1 TAB PO HS Calcium (Calcium), 600 MG PO DAILY Diclofenac Sod (Voltaren), 1 APPLN EXT QID Levothyroxine Sodium (Levothyroxine Sodium), 1 TAB PO DAILY Metoprolol Succinate (Metoprolol Succinate ER), 100 MG PO DAILY Potassium Citrate (Potassium Citrate), 15 MEQ PO QAM Prednisone (Prednisone), 0 PO DAILY Sumatriptan Succinate (Imitrex), 100 MG PO PRN Scheduled PRN Acetaminophen (Tylenol), 1,000 MG PO Q6H PRN for Headache or Pain Allergies Coded Allergies: Peanut (Verified Allergy, Severe, ANAPHYLAXIS, 01/14/17) Amlodipine (Verified Allergy, Intermediate, FEET SWELL AND TURN RED, ) Banana (Verified Allergy, Intermediate, "DRUNKEN" FEELING, 01/14/17) NSAIDs (Verified Allergy, Unknown, hx chronic kidney diseas, 01/14/17) Uncoded Allergies: NACROTICS (Allergy, Unknown, hx of drug addiction, 11/07/16) Vital Signs Date Time Temp Pulse Resp B/P Pulse Ox O2 Delivery O2 Flow Rate FiO2 01/14/17 21:22 95 18 121/85 96 01/14/17 19:13 36.9 98 20 121/85 95 Room Air Departure Information Impression Primary Impression: Tenosynovitis Dispostion Home / Self-Care Condition GOOD Prescriptions Prednisone (Prednisone) 20 Mg Tab 0 PO DAILY, #18 TAB 3 DAILY FOR 3 DAYS, THEN 2 DAILY FOR 3 DAYS, THEN 1 DAILY FOR 3 DAYS. Prov: Mayra Renee PA-C 01/14/17 Referrals Dana Harrington C.R.N.P (PCP) Jj Trinh M.D. Patient Instructions ED [facility] Tenosynovitis, [facility] Additional Instructions Wear the splint when up and about. Contact orthopedics to schedule a follow up appointment for further evaluation and management. Return with worsening symptoms.
[2017-01-14] MEDS ORDERED: PRED20TA PO (21:15)
[2017-01-14 21:22] VITALS: BP 121/85; PULSE 95; O2SAT 96
[2017-02-08] MEDS ORDERED: LEVO125T5 PO (12:18)
[2017-02-08] MEDS ORDERED: CALC600T37 PO (13:48)
== END 2017-01-14 21:22 | disposition home or self-care (01) ==
LOC: C.EDB 19:11 → C.EDD 21:22
DX: M65.841 Other synovitis and tenosynovitis, right hand (principal); N18.9 Chronic kidney disease, unspecified; I12.9 Hypertensive chronic kidney disease with stage 1 through stage 4 chronic kidney disease, or unspecified chronic kidney disease; E03.9 Hypothyroidism, unspecified; Z79.899 Other long term (current) drug therapy; Z86.011 Personal history of benign neoplasm of the brain

== ENCOUNTER → 2017-01-25 | Outpatient (CLI) | payer OTHER ==
[~2017-01-25] MED LIST changes: +ACET-1256 PO; +ACET-1325 PO; +AMT25 PO; +CABE0.5T PO; +CALC600T37 PO; +CEFA500C2 PO; +GLC/500 PO; +LEVO125T5 PO; +ONDA4TAB10 SL; +POTA4.25 PO; +PRED20TA PO; +RIZA10TA19 PO; +SUMA100T15 PO; +SUMA100T16 PO; +TPRSR/100 PO
--- NOTE | 2017-01-26 06:19 | PAP/PSG TECHNICIAN REPORT ---
[facility] Materials Management Manager Polysomnogram Report Study name: None Report date: 01/26/2017 Study date: 01/25/2017 Referring Physician: TRISTEN NEWELL M.D. Name: CUONG CORDELL Interpreting Physician: Adeel Pulido M.D. Date of : 1975 Materials Management Manager: Fatimah Mia [facility]. Sex: Female Age: 41 StudyType: PSG Weight: 284 lbs Height: 41 years, Height 5' 3" Neck Circum:17.75inches BMI: 50.3 Medications: Allopurinol 100mg, Cipro 250mg, Voltaren Gel, Pantoprazole 40mg, Potassium Citrate 10meq, Prednisone 20mg, Tylenol 500mg, Levothyroxine 125mcg, Metoprolol Succinate 100mg, Patient History Study started on room air with no ETCO2 monitoring in room #8. 41 yr old female here tonight for a diagnostic psg. She has a history of pituitary gland tumor, OD papilledema and headache syndrome, HTN, obesity, gout, kidney stones, congenital absence of left kidney, CKD stage III and Hypothyroidism. She has EDS and snoring. ESS=9/24. Neck circ=17.75inches Parameters Monitored NPSG: E1-M2, E2-M1, Fp1-M2, Fp2-M1, F3-M2, F4-M2, F4-M1, C3-M2, C4-M2, C4-M1, O1-M2, O2-M2, O2-M1, T3-M2, T4-M1, P3-M2, P4-M1, CHIN1, CHIN2, HR, EKG, Legs, PFLOW, SNOR, FLOW, CFLOW, Tidal Volume, THOR, ABDO, SpO2, PLTH, CPRESS, ETCO2 Wave, ETCO2, pH Sleep Architecture Sleep Stages Time at Lights Off 10:33:35 PM STAGES Time (min.) TST (%) Time at Lights On 5:18:35 AM Wake 41.5 -- Total Recording Time (TRT) 405.00 min. N1 11.0 3 Total Sleep Period (TSP) 387.5 min. N2 160.0 44 Total Sleep Time (TST) 363.5min. N3 107.5 30 Awake Time 41.5 min. REM 85.0 23 Wake after Sleep Onset 24.0 min. Sleep Efficiency (SE) 90 % Sleep Onset Latency (ABDULAZIZ) 17.5 min. Number of Stage 1 Shifts None Awakenings 21 Stage Changes 71 Number of REM periods 8 REM 85.0 23 REM Latency 61.5 min. NREM 278.5 77 Body Position Analysis Supine Right Left Side Prone Vertical Total Sleep Time (min.) 325.4 0.0 71.0 71.00 0.0 0.0 Total Sleep Time (%) 80% 0% 20% 20 0% N/A% Total Sleep Time REM (min.) 59.5 0.0 25.5 None 0.0 0.0 Total Sleep Time NREM (min.) 233.0 0.0 45.5 None 0.0 0.0 Intermittent Wake (min.) 32.9 0.0 8.6 None 0.0 0.0 Total Sleep Period (%) 79% None None None None None Arousals Myoclonus (PLM) * Events Count Index Events Count Index Spontaneous 12 2 Events Awake (PLMW) 48 69.4 Respiratory 2 0.5 Events Asleep w/ Arousal (PLMA) 12 2.0 PLM 12 2 Events Asleep w/o Arousal (PLMS) 160 26.4 Snoring 6 1 Total Asleep 172 28.4 Total 32 5 Total 220 33 Respiratory Analysis * CA OA MA CH H RERA Total Count 2 0 0 0 26 0 28 Index 0.3 0.0 0.0 0 4.3 0 4.6 Mean Duration 13.8 0.0 0.0 0.00 20.1 0.0 19.7 Longest Duration 14.3 0.0 0.0 0.00 0.0 0.0 45.1 Respiratory Event Summary Total Supine ~Supine Right Left Prone REM NREM Apneas Count 2 1 1 N/A 1 N/A 2 0 Index 0.3 0 1 N/A 0.8 N/A 1 0 Hypopneas (4% Desat) Count 26 23 3 N/A 3 N/A 25 1 Index 4.3 4.7 3 N/A 2.5 N/A 17.6 0.2 Apneas & All Hypopneas Count 28 24 4 N/A 4 N/A 27 1 Index 4.6 5 3 N/A 3 N/A 19.1 0.2 Respiratory Events (Monogram Technician+All Hyp+RERA) Count 28 24 4 N/A 4 N/A 27 1 Index 4.6 5 3 N/A 3.4 N/A 19.1 0.2 Respiratory Related Arousal Count 2 24 0 N/A 0 N/A 3 0 Index 0.5 1 0 N/A 0 N/A 2 0 Snoring Analysis Supine Right Left Prone REM NREM Total Snore duration 23.3 min Snores count 625 N/A 431 N/A 71 985 1,056 Snore mean duration 1.3 Sec Snores index 128 N/A 364 N/A 50.1 212.2 174.3 TST with snoring (%) 6.4% SpO2 Analysis Total REM NREM Awake <50% 0.0 min. 0.0 min. 0.0 min. 0.0 min. 51 - 60% 0.0 min. 0.0 min. 0.0 min. 0.0 min. 61 - 70% 0.0 min. 0.0 min. 0.0 min. 0.0 min. 71 - 80% 0.0 min. 0.0 min. 0.0 min. 0.0 min. 81 - 90% 102.7 min. 38.0 min. 59.1 min. 5.5 min. 91 - 100% 302.3 min. 47.0 min. 219.4 min. 36.0 min. Average 91 91 92 92 Minimum SpO2 83 83 87 88 Desaturation Event Index 8.9 21.2 5.4 10.1 # Desat. Events below 89% 20 15 3 2 Time(%) with Saturation below 89% 2.6 2.2 0.3 0.1 Time(min.) with Saturation below 89% 10.5 8.8 1.2 0.4 Heart Rate Analysis End Tidal CO2 Analysis Min (bpm) Max (bpm) Average (bpm) TSP (mins) % of TSP Awake 56 90 70 Above 55 mmHg 0.0 0.0 NREM 56 91 66 50-55 mmHg 0.0 0.0 REM 60 88 71 45-50 mmHg 363.5 100.0 Overall 56 91 67 40-45 mmHg 0.0 0.0 35-40 mmHg 0.0 0.0 30-35 mmHg 0.0 0.0 Average ETCO2 0.0 Supplemental O2 Values Minimum O2 level: None Value Start Time End Time Materials Management Manager Comments Ms. PizarroMandiJoshua slept in the supine and left position. No cardiac arrhythmia noted. Some leg movements were noted. No bruxism noted. Snoring was noted and scored as a 1 on a scale of 1 through 5. (0=no snoring, 5=snoring loud enough to be heard through a closed door or down the [address] way) She did not use the restroom during the night. She stated that she slept well. The final report will be interpreted and signed by a sleep physician. The completed physician report will then be placed in the patient medical record. Therapy (cm H2O) 0 TIB (min.) 405.0 TST (min.) 363.5 Sleep Onset (min.) 17.5 REM Onset From Sleep (min.) 61.5 Sleep Efficiency % 90 Wakefulness (%) 10 Wakefulness (min.) 41.5 NREM 1 (%) 3 NREM 1 (min.) 11.0 NREM 2 (%) 44 NREM 2 (min.) 160.0 NREM 3 (%) 30 NREM 3 (min.) 107.5 REM (%) 23 REM (min.) 85.0 # Arousals 32 Arousal Index 5 # Snore 1,056 Snore Index 174.3 AHI 4.6 AHI Supine 5 AHI Non-Supine 3 NREM AHI 0.2 REM AHI 19.1 RDI 4.6 # Obstructive Apnea 0 # Central Apnea 2 # Mixed Apnea 0 # Hypopneas 26 RERAs 0 Total Respiratory Events 29 Time Below SpO2 89% (min.) 10.1 Mean NREM SpO2 (%) 92 Mean REM SpO2 (%) 91 Mean Sleep SpO2 (%) 91 Min NREM SpO2 (%) 87 Min REM SpO2 (%) 83 Position Supine (min.) 325.4 Position Non-supine (min.) 71.0 LM Index Sleep 28.4 LM Index NREM 33.0 LM Index REM 13.4 Mean Heart Rate (bpm) 67 Min Heart Rate (bpm) 56
--- NOTE | 2017-01-26 17:15 | POLYSOMNOGRAPH REPORT ---
CLINICAL DATA: A 41-year-old female with BMI of [address] Linton for a diagnostic sleep study. She has excessive daytime sleepiness and snoring along with multiple other medical problems. Her [place] Sleepiness Score is 9/24. SLEEP ARCHITECTURE: Total sleep period was 387.5 minutes. Total sleep time was 363.5 minutes divided between 278.5 minutes of non-REM sleep and 85 minutes of REM sleep. Sleep onset latency was 17.5 minutes. REM latency was 61.5 minutes. Sleep efficiency was 90%. Wake after sleep onset was 24 minutes. Sleep consisted of stage N1 3%, N2 44%, N3 30%, and REM 23%. AROUSAL DATA: 32 arousals were recorded for an index of 5 per hour. PERIODIC LIMB MOVEMENTS DATA: Mildly elevated limb movements during sleep were noted. There were 172 limb movements during sleep were noted for an index of 28.4 per hour with an arousal index of 2 per hour. RESPIRATORY DATA: There was no evidence of clinically significant sleep apnea/hypopnea noted. The AHI was 4.6. There were 2 central apneic episodes, the longest duration of which was 14.3 seconds. There were 26 hypopneic episodes. The mean duration of hypopnea was 20 seconds. OXIMETRY DATA: Mild nocturnal hypoxemia was seen. Oxygen praveen was 83%. Mean saturation was 91%. Time below 89% was 10.5 minutes. EKG: Heart rates ranged from 56-91 beats per minute. No arrhythmias were noted. ENGRAVER HAND SO[employer] METALS'S COMMENTS: The patient slept in the supine and left positions. Snoring was mild, rated 1 on a scale of 1-5. IMPRESSION: No evidence of clinically significant sleep apnea/hypopnea noted on this sleep study. The patient did have some very mild nocturnal hypoxemia and mildly elevated limb movements during sleep. RECOMMENDATIONS: The patient may benefit from positional therapy and weight loss. There was no evidence that CPAP is needed at this time. [facility]
== END | disposition home or self-care (01) ==
LOC: C.NEUR 20:00
PROVIDERS: ATTEND Internal Medicine
DX: R53.83 Other fatigue (principal); R06.83 Snoring; R09.02 Hypoxemia

== ENCOUNTER 2017-02-08 15:16 | Emergency (ER) | payer OTHER ==
[~2017-02-08] VITALS: Ht 160 cm; Wt 140.9 kg
[~2017-02-08 15:16] MED LIST changes: -ACET-1256 PO; -ACET-1325 PO; -AMT25 PO; -CABE0.5T PO; -CEFA500C2 PO; -GLC/500 PO; -ONDA4TAB10 SL; -POTA4.25 PO; -RIZA10TA19 PO; -SUMA100T15 PO; -SUMA100T16 PO; -TPRSR/100 PO
[2017-02-08 15:31] VITALS: Ht 160 cm; Wt 140.9 kg
[2017-02-08] MEDS ORDERED: METOCLOPRAMIDE HCL INJ 5 MG/ML 2 ML VIAL IV STA (15:35)
[2017-02-08] MEDS ORDERED: ACETAMINOPHEN IV 100 ML IV STA (15:35)
[2017-02-08] MEDS ORDERED: SUMA100T15 PO (15:42)
[2017-02-08] MEDS ORDERED: POTA4.25 PO (15:42)
[2017-02-08] MEDS ORDERED: ALLO100T PO (15:42)
[2017-02-08 16:07] LABS: BASO % 0.4 %; BASO ABS # 0.04 K/uL (0-0.2); COMPLETE YES; EOS % 0.6 %; IG% 0.3 %; LYMPH % 14.1 %; LYMPH ABS # 1.38 K/uL (1.2-3.4); MEAN CELL VOLUME 91.6 fL (80-100); MEAN CORPUSCULAR HEMOGLOBIN 29.2 pg (25-34); MEAN CORPUSCULAR HGB CONC 31.9 g/dl (32-36); MEAN PLATELET VOLUME 10.2 fL (7.4-10.4); MONO % 3.6 %; PLATELET COUNT 297 K/uL (130-400); RED BLOOD COUNT 5.24 M/uL (4.2-5.4); WHITE BLOOD COUNT 9.76 K/uL (4.8-10.8)
[2017-02-08 16:25] LABS: ALT/SGPT 19 U/L (12-78); AST/SGOT 17 U/L (15-37); BLOOD UREA NITROGEN 29 mg/dl (7-18); BUN/CREATININE RATIO 13.6 (10-20); CARBON DIOXIDE 20 mmol/L (21-32); CHLORIDE 116 mmol/L (98-107); GLUCOSE 137 mg/dl (70-99); POTASSIUM 3.6 mmol/L (3.5-5.1); SODIUM 145 mmol/L (136-145)
[2017-02-08 16:27] LABS: ALKALINE PHOSPHATASE 96 U/L (45-117)
[2017-02-08] MEDS ORDERED: SODIUM CHLORIDE 0.9% 1000ML 1,000 ML IV STA ×2 (16:32)
[2017-02-08] MEDS ORDERED: ONDANSETRON INJ 2 MG/ML 2 ML VIAL IV STA (16:32)
--- NOTE | 2017-02-08 16:52 | DIAGNOSTIC IMAGING REPORT ---
ABDOMEN 2VIEW W/PA CHEST RTN CLINICAL HISTORY: Epigastric pain, nausea, vomiting. COMPARISON STUDY: 11/07/2016 FINDINGS: The erect chest reveals borderline cardiac enlargement. There are increased right infrahilar markings, likely representing a summation as no mass was identified in this area on a CT scan performed 11/08/2016. There is no free air. Erect and supine views the abdomen reveal multiple scattered air-fluid levels, most of which appear colonic. There are no transition zone to indicate bowel obstruction. There are multiple right renal calculi. There are multiple nonspecific pelvic basin calcifications. IMPRESSION: 1. No evidence of bowel obstruction. No evidence of free air 2. Right-sided nephrolithiasis 3. Nonspecific pelvic basin calcifications. Electronically signed by: Florentino Siddiqui M.D. 02/08/2017 4:51 PM Dictated Date/Time: 02/08/2017 4:48 PM
[2017-02-08] MEDS ORDERED: ONDA4TAB10 SL (17:37)
[2017-02-08 18:00] VITALS: BP 104/71; PULSE 87; TEMP 36.7; O2SAT 96
[2017-02-08] MEDS ORDERED: ACET-1256 PO (18:02)
--- NOTE | 2017-02-08 18:08 | EMERGENCY ROOM VISIT NOTE ---
History Report prepared by Merritt: Joshua Fernandez Under the Supervision of: Dr. Bryce Arguello M.D. First contact with patient: 15:31 Chief Complaint: VOMITING Stated Complaint: NAUSEA, VOMITING, WEAKNESS, History of Present Illness The patient is a 41 year old female who presents to the Emergency Room by EMS with complaints of intermittent episodes of vomiting and diarrhea beginning 2.5 hours ago. She notes that she had some pork ribs last night which had been in the refrigerator "for awhile". She also complains of weakness. Nothing has improved her symptoms. Source of History: patient Onset: 2.5 hours ago Quality: other (vomiting and diarrhea) Timing: intermittent Modifying Factors (Relieving): other (none) Associated Symptoms: + weakness Review of Systems See HPI for pertinent positives & negatives. A total of 10 systems reviewed and were otherwise negative. Past Medical & Surgical Medical Problems: (1) CKD (chronic kidney disease) stage 3, GFR 30-59 ml/min (2) Diabetes (3) HTN (hypertension) (4) Knee pain, bilateral (5) Nephrolithiasis (6) Weakness Family History Patient reports no known family medical history. Social History Smoking Status: Former Smoker Alcohol Use: occasionally Drug Use: none Marital Status: Current/Historical Medications Scheduled Acetazolamide (Acetazolamide), 1 TAB PO BID Allopurinol (Zyloprim), 100 MG PO BID Amitriptyline HCl (Amitriptyline HCl), 1 TAB PO HS Calcium (Calcium), 600 MG PO DAILY Diclofenac Sod (Voltaren), 1 APPLN EXT QID Levothyroxine Sodium (Levothyroxine Sodium), 1 TAB PO DAILY Metoprolol Succinate (Metoprolol Succinate ER), 100 MG PO DAILY Ondasetron Odt (Zofran Odt), 4 MG SL Q6H Potassium Citrate (Alkalinizer (Potassium Citrate ER), 15 MEQ PO BID Sumatriptan Succinate (Imitrex), 100 MG PO PRN Sumatriptan Succinate (Imitrex), 1 TAB PO UD Scheduled PRN Acetaminophen (Tylenol), 1,000 MG PO Q6H PRN for Headache or Pain Allergies Coded Allergies: Peanut (Verified Allergy, Severe, ANAPHYLAXIS, 01/14/17) Amlodipine (Verified Allergy, Intermediate, FEET SWELL AND TURN RED, ) Banana (Verified Allergy, Intermediate, "DRUNKEN" FEELING, 01/14/17) NSAIDs (Verified Allergy, Unknown, hx chronic kidney diseas, 01/14/17) Uncoded Allergies: NACROTICS (Allergy, Unknown, hx of drug addiction, 11/07/16) Physical Exam Vital Signs Date Time Temp Pulse Resp B/P Pulse Ox O2 Delivery O2 Flow Rate FiO2 02/08/17 18:00 36.7 87 16 104/71 96 02/08/17 17:33 87 16 104/71 96 Room Air 02/08/17 15:31 96 02/08/17 15:31 36.7 95 18 93/59 98 Room Air Physical Exam GENERAL: Patient is a healthy-appearing well-nourished HEAD: Normocephalic atraumatic EYES: Ocular movements intact pupils equal and react to light OROPHARYNX mucous membranes are moist no exudates present no erythema or edema present NECK: Supple no nuchal rigidity CHEST: Good equal expansion LUNGS: Clear and equal to auscultation CARDIAC: Normal S1 and S2 ABDOMEN: Soft nontender no guarding BACK: No CVA tenderness EXTREMITIES: No pain upon palpation normal muscle strength in all groups no clubbing cyanosis or edema NEURO: Patient is following commands is answering questions appropriately. Alert and oriented x3 Cranial Nerves 2-12 grossly intact Medical Decision & Procedures ER Provider Diagnostic Interpretation: X-ray results as stated below per interpretation by me and the radiologist: ABDOMEN 2VIEW W/PA CHEST RTN FINDINGS: The erect chest reveals borderline cardiac enlargement. There are increased right infrahilar markings, likely representing a summation as no mass was identified in this area on a CT scan performed 11/08/2016. There is no free air. Erect and supine views the abdomen reveal multiple scattered air-fluid levels, most of which appear colonic. There are no transition zone to indicate bowel obstruction. There are multiple right renal calculi. There are multiple nonspecific pelvic basin calcifications. IMPRESSION: 1. No evidence of bowel obstruction. No evidence of free air 2. Right-sided nephrolithiasis 3. Nonspecific pelvic basin calcifications. Electronically signed by: Florentino Siddiqui M.D. Laboratory Results 02/08/17 15:55 Red Blood Count 5.24, Mean Corpuscular Volume 91.6, Mean Corpuscular Hemoglobin 29.2, Mean Corpuscular Hemoglobin Concent 31.9, Mean Platelet Volume 10.2, Neutrophils (%) (Auto) 81.0, Lymphocytes (%) (Auto) 14.1, Monocytes (%) (Auto) 3.6, Eosinophils (%) (Auto) 0.6, Basophils (%) (Auto) 0.4, Neutrophils # (Auto) 7.90, Lymphocytes # (Auto) 1.38, Monocytes # (Auto) 0.35, Eosinophils # (Auto) 0.06, Basophils # (Auto) 0.04 02/08/17 15:55 Test 02/08/17 13:20 02/08/17 15:55 White Blood Count 9.76 K/uL (4.8-10.8) Red Blood Count 5.24 M/uL (4.2-5.4) Hemoglobin 15.3 g/dL (12.0-16.0) Hematocrit 48.0 % (37-47) Mean Corpuscular Volume 91.6 fL (80-100) Mean Corpuscular Hemoglobin 29.2 pg (25-34) Mean Corpuscular Hemoglobin Concent 31.9 g/dl (32-36) Platelet Count 297 K/uL (130-400) Mean Platelet Volume 10.2 fL (7.4-10.4) Neutrophils (%) (Auto) 81.0 % Lymphocytes (%) (Auto) 14.1 % Monocytes (%) (Auto) 3.6 % Eosinophils (%) (Auto) 0.6 % Basophils (%) (Auto) 0.4 % Neutrophils # (Auto) 7.90 K/uL (1.4-6.5) Lymphocytes # (Auto) 1.38 K/uL (1.2-3.4) Monocytes # (Auto) 0.35 K/uL (0.11-0.59) Eosinophils # (Auto) 0.06 K/uL (0-0.5) Basophils # (Auto) 0.04 K/uL (0-0.2) RDW Standard Deviation 51.7 fL (36.4-46.3) RDW Coefficient of Variation 15.2 % (11.5-14.5) Immature Granulocyte % (Auto) 0.3 % Immature Granulocyte # (Auto) 0.03 K/uL (0.00-0.02) Anion Gap 9.0 mmol/L (3-11) Est Creatinine Clear Calc Drug Dose 48.9 ml/min Estimated GFR () 33.0 Estimated GFR (Non- 28.5 BUN/Creatinine Ratio 13.6 (10-20) Calcium Level 10.0 mg/dl (8.5-10.1) Total Bilirubin 0.2 mg/dl (0.2-1) Direct Bilirubin < 0.1 mg/dl (0-0.2) Aspartate Amino Transf (AST/SGOT) 17 U/L (15-37) Alanine Aminotransferase (ALT/SGPT) 19 U/L (12-78) Alkaline Phosphatase 96 U/L (45-117) Total Protein 8.9 gm/dl (6.4-8.2) Albumin 3.7 gm/dl (3.4-5.0) Lipase 263 U/L (73-393) Date/Time Source Procedure Growth Status 02/08/17 13:20 Stool C.difficile Toxin B Gene (PCR) - Final No C. difficile toxin B gene detected Complete Labs reviewed by ED physician. Medications Administered Medications (Trade) Dose Ordered Sig/Kathy Route Start Time Stop Time Status Last Admin Dose Admin Metoclopramide HCl 10 mg 10 mg NOW STAT IV 02/08/17 15:35 02/08/17 15:38 DC 02/08/17 16:08 10 MG Acetaminophen (Ofirmev Iv) 100 ml @ 400 mls/hr NOW STAT IV 02/08/17 15:35 02/08/17 15:49 DC 02/08/17 16:19 400 MLS/HR ED Course 1532: Past medical records reviewed. The patient was evaluated in room C4. A complete history and physical examination was performed. 1535: Ordered Acetaminophen 100 ml @ 400 mL/hr IV, Reglan Inj 10 mg IV. 1632: Ordered Zofran Inj 4 mg IV, Sodium Chloride 1000 ml @ 999 mls/hr, Sodium Chloride 1000 ml @ 999 mls/hr. 1755: Upon reexamination the patient is resting comfortably. I discussed results and treatment plan with the patient. She verbalizes agreement and understanding. The patient is ready for discharge. Medical Decision Differential diagnosis: Etiologies such as gastroenteritis, food borne illness, infections, appendicitis , diverticulitis, inflammatory bowel disease, obstruction, GI bleed, biliary pathology, as well as others were entertained. This is a 41-year-old female who presents emergency Department with gastroenteritis-like symptoms. Serial abdominal examinations were performed on the patient in the emergency department and at no time the patient exhibit surgical abdomen or abdominal tenderness. Based on these findings I felt that the patient did not require CT scan of the abdomen. An IV was established, the patient given Tylenol, Reglan. Repeat examination revealed much improvement the patient's symptoms. The patient has a normal white blood cell count renal profile liver profile as well as a normal lipase. Based on these findings I felt that the patient was well enough to be discharged home for follow-up with a primary care physician. The patient was able tolerate oral Gatorade in the emergency department. She will be written for Zofran for home. Patient was in agreement with the treatment plan. Impression Primary Impression: Gastroenteritis Scribe Attestation The scribe's documentation has been prepared under my direction and personally reviewed by me in its entirety. I confirm that the note above accurately reflects all work, treatment, procedures, and medical decision making performed by me. Departure Information Dispostion Home / Self-Care Prescriptions Ondasetron Odt (ZOFRAN ODT) 4 Mg Tab 4 MG SL Q6H for Nausea, #6 TAB Prov: Bryce Arguello MD 02/08/17 Referrals Dana Harrington, C.R.N.P (PCP) Forms HOME CARE DOCUMENTATION FORM, IMPORTANT VISIT INFORMATION Patient Instructions ED Diet Vomiting Diarrhea, ED Gastroenteritis Report Pend, My [facility] Additional Instructions You have been examined and treated today on an emergency basis only. This is not a substitute for, or an effort to provide, complete comprehensive medical care. It is impossible to recognize and treat all injuries or illnesses in a single emergency department visit. It is therefore important that you follow up closely with Dr Harrington. Call as soon as possible for an appointment. Thank you for your time and consideration. I look forward to speaking with you again soon. Please don't hesitate to call us if you have any questions.
[2017-02-08] MEDS ORDERED: ACET-1325 PO (20:02)
[2017-02-08] MEDS ORDERED: SUMA100T16 PO (20:02)
[2017-02-08] MEDS ORDERED: AMT25 PO (20:02)
[2017-02-08] MEDS ORDERED: TPRSR/100 PO (20:12)
== END 2017-02-08 18:00 | disposition home or self-care (01) ==
LOC: EDBD 15:16 → C.EDC 15:22
DX: K52.9 Noninfective gastroenteritis and colitis, unspecified (principal); N18.3 Chronic kidney disease, stage 3 (moderate); E11.9 Type 2 diabetes mellitus without complications; I10 Essential (primary) hypertension; Z87.891 Personal history of nicotine dependence

== ENCOUNTER → 2017-04-04 | Outpatient (CLI) | payer OTHER ==
[~2017-04-04] MED LIST changes: +ACET-1256 PO; +ACET-1325 PO; +AMT25 PO; +CABE0.5T PO; +CEFA500C2 PO; +GLC/500 PO; +LEVO125T4 PO; -LEVO125T5 PO; +ONDA4TAB10 SL; +POTA4.25 PO; -PRED20TA PO; +RIZA10TA19 PO; +SUMA100T15 PO; +SUMA100T16 PO; +TPRSR/100 PO; -URC10 PO
[2017-04-04 17:54] LABS: BASO % 0.6 %; BASO ABS # 0.04 K/uL (0-0.2); COMPLETE YES; EOS % 2.1 %; HEMATOCRIT 46.9 % (37-47); IG% 0.2 %; LYMPH % 27.1 %; MEAN CELL VOLUME 90.5 fL (80-100); MEAN CORPUSCULAR HEMOGLOBIN 28.8 pg (25-34); MEAN CORPUSCULAR HGB CONC 31.8 g/dl (32-36); MEAN PLATELET VOLUME 11.6 fL (7.4-10.4); MONO % 7.1 %; NEUT % 62.9 %; PLATELET COUNT 288 K/uL (130-400); RED BLOOD COUNT 5.18 M/uL (4.2-5.4); WHITE BLOOD COUNT 6.64 K/uL (4.8-10.8)
[2017-04-04 18:06] LABS: ALT/SGPT 16 U/L (12-78); BLOOD UREA NITROGEN 20 mg/dl (7-18); BUN/CREATININE RATIO 13.5 (10-20); CALCIUM 9.2 mg/dl (8.5-10.1); CARBON DIOXIDE 24 mmol/L (21-32); CHLORIDE 112 mmol/L (98-107); GLUCOSE 76 mg/dl (70-99); MAGNESIUM 2.1 mg/dl (1.8-2.4); POTASSIUM 4.1 mmol/L (3.5-5.1); SODIUM 143 mmol/L (136-145)
[2017-04-04 18:09] LABS: ALB/GLOB RATIO 0.9 (0.9-2); ALKALINE PHOSPHATASE 98 U/L (45-117); AST/SGOT 16 U/L (15-37)
[2017-04-04 18:14] LABS: URINE PROTIEN/CREAT RATIO 0.1 (0-0.2); URINE TOTAL PROTEIN 12.2 mg/dl (0-11.9)
[2017-04-04 18:22] LABS: URINE APPEARANCE CLOUDY (CLEAR); URINE BILIRUBIN NEG (NEG); URINE COLOR YELLOW; URINE EPITHELIAL CELL AUTO >30 /lpf (0-5); URINE NITRITE POS (NEG); URINE SPECIFIC GRAVITY 1.017 (1.000-1.030); UROBILINOGEN NEG (NEG)
[2017-04-04 18:27] LABS: MANUAL MICROSCOPIC REQUIRED? NO; REVIEW REQ? NO
== END | disposition home or self-care (01) ==
LOC: C.LABPVFM 13:08
PROVIDERS: ATTEND Internal Medicine Nephrology
DX: G43.009 Migraine without aura, not intractable, without status migrainosus (principal); Q60.0 Renal agenesis, unilateral; N18.3 Chronic kidney disease, stage 3 (moderate); R31.29 Other microscopic hematuria; E55.9 Vitamin D deficiency, unspecified; I12.9 Hypertensive chronic kidney disease with stage 1 through stage 4 chronic kidney disease, or unspecified chronic kidney disease; D49.7 Neoplasm of unspecified behavior of endocrine glands and other parts of nervous system

== ENCOUNTER → 2017-06-09 | Outpatient (CLI) | payer OTHER ==
--- NOTE | 2017-06-09 12:01 | DIAGNOSTIC IMAGING REPORT ---
(RENAL)RETROPERITON COMP CLINICAL HISTORY: 41 years-old Female presenting with nephrolithiasis. TECHNIQUE: Real-time grayscale and limited color Doppler ultrasound imaging of the kidneys and bladder was performed. COMPARISON: 11/07/[address] from 11/08/2016. FINDINGS: Right kidney: Normal echogenicity. Right kidney measures 12.2 cm. No hydronephrosis. 6 mm echogenic focus with twinkling artifact suggestive of a renal calculus at the upper pole. Normal perfusion. Left kidney: Absent. Bladder: No bladder wall thickening. Right ureteral jet present. Other: None. IMPRESSION: 1. Nonobstructing 6 mm right renal calculus. Additional calculi seen on prior CT from 11/08/2016 not visualized by ultrasound. 2. Left nephrectomy. Electronically signed by: Nj Lan M.D. 06/09/2017 12:00 PM Dictated Date/Time: 06/09/2017 11:58 AM
== END | disposition home or self-care (01) ==
LOC: C.ULTR 10:52
PROVIDERS: ATTEND Urology
DX: N20.0 Calculus of kidney (principal); Z90.5 Acquired absence of kidney

== ENCOUNTER → 2017-06-15 | Outpatient (CLI) | payer OTHER | END | disposition home or self-care (01) | LOC: C.LABSPEC 17:15 | PROVIDERS: ATTEND Urology | DX: N20.0 Calculus of kidney (principal) ==

== ENCOUNTER 2017-06-22 09:11 | Emergency (ER) | payer OTHER ==
[~2017-06-22] VITALS: Ht 160 cm; Wt 126.0 kg
[~2017-06-22 09:11] MED LIST changes: -CABE0.5T PO; -CEFA500C2 PO; -GLC/500 PO; -RIZA10TA19 PO
[2017-06-22 09:19] VITALS: TEMP 36.5; Ht 160 cm; Wt 126.0 kg
[2017-06-22] MEDS ORDERED: GLC/500 PO (09:30)
[2017-06-22] MEDS ORDERED: CEFA500C2 PO (09:30)
[2017-06-22] MEDS ORDERED: RIZA10TA19 PO (09:30)
[2017-06-22] MEDS ORDERED: CABE0.5T PO (09:30)
[2017-06-22] MEDS ORDERED: SODIUM CHLORIDE 0.9% 1000ML 1,000 ML IV STA (09:40)
--- NOTE | 2017-06-22 09:45 | EMERGENCY ROOM VISIT NOTE ---
History First contact with patient: 09:26 Chief Complaint: FLANK PAIN Stated Complaint: FLANK PAIN History of Present Illness The patient is a 42 year old female who presents to the Emergency Room with complaints of right flank pain. The patient has congenital absence of the left kidney. The patient does have chronic kidney disease. She has had recurrent kidney stones and urinary tract infections. She saw Dr. Guardado of urology on Tuesday and had a urinalysis which suggested urinary tract infection and she was started on cefadroxil. The patient states that today she began to have right flank pain. The pain is in the right flank and radiates to the right abdomen. She rates her discomfort 6/10. She denies any fevers but states that she has had chills and felt sweaty. She denies any chest pain or trouble breathing. She denies any diarrhea. Review of Systems A 10 system review of systems was completed with positives and pertinent negatives listed in the HPI. Past Medical/Surgical History Medical Problems: (1) CKD (chronic kidney disease) stage 3, GFR 30-59 ml/min (2) Diabetes (3) HTN (hypertension) (4) Knee pain, bilateral (5) Nephrolithiasis (6) Weakness Family History Patient reports no known family medical history. Social History Smoking Status: Former Smoker Alcohol Use: occasionally Drug Use: none Marital Status: Current/Historical Medications Scheduled Allopurinol (Zyloprim), 100 MG PO BID Amitriptyline HCl (Amitriptyline HCl), 50 MG PO HS Cabergoline (Cabergoline), 0.5 MG PO 2XWK Calcium (Calcium), 600 MG PO DAILY Cefadroxil (Duricef), 500 MG PO BID Diclofenac Sod (Voltaren), 1 APPLN EXT QID Levothyroxine Sodium (Levothyroxine Sodium), 1 TAB PO DAILY Metformin Hcl (Glucophage), 500 MG PO BID Metoprolol Succinate (Metoprolol Succinate ER), 100 MG PO DAILY Potassium Citrate (Alkalinizer (Potassium Citrate ER), 15 MEQ PO BID Rizatriptan Benzoate (Maxalt-[employer] C[employer]aker), 10 MG PO UD Scheduled PRN Acetaminophen (Tylenol), 1,000 MG PO Q6H PRN for Headache or Pain Physical Exam Vital Signs Date Time Temp Pulse Resp B/P (MAP) Pulse Ox O2 Delivery O2 Flow Rate FiO2 06/22/17 14:05 69 16 115/74 98 06/22/17 12:54 70 16 124/94 96 Room Air 06/22/17 10:53 66 16 105/78 96 Room Air 06/22/17 09:19 36.5 70 16 127/96 96 Room Air Physical Exam VITALS: Vitals are noted on the nurse's note and reviewed by myself. Vital signs stable. The patient is afebrile. GENERAL: This a 42-year-old female, in no acute distress, nondiaphoretic, well- developed well-nourished. SKIN: The patient does have moderate acne to the face. There is no tenting of the skin. Capillary reflex less than 2 seconds. HEAD: Normocephalic atraumatic. EARS: External auditory canals clear, tympanic membranes pearly pitt without erythema or effusion bilaterally. EYES: Pupils equal round and reactive to light and accommodation. Conjunctivae without injection, sclerae without icterus. Extraocular movements intact. NOSE: Patent, turbinates without inflammation or discharge. MOUTH: Mucous membranes moist. Tonsils are not enlarged. Pharynx without erythema or exudate. Uvula midline. Airway patent. Tongue does not deviate. NECK: Supple without nuchal rigidity. No JVD. HEART: Regular rate and rhythm without murmurs gallops or rubs. LUNGS: Clear to auscultation bilaterally without wheezes, rales or rhonchi. No retractions or accessory muscle use. ABDOMEN: Positive bowel sounds x 4. Soft, minimal right sided tenderness, moderate right CVA tenderness, without masses or organomegaly. Dolan sign negative. MUSCULOSKELETAL: No muscle atrophy, erythema, or edema noted. Full range of motion without joint tenderness in all extremities. No tenderness to palpation. Normal gait. Strength 5/5 throughout. NEURO: Patient was alert and oriented to person place and time. No focal neurological deficits. Medical Decision & Procedures ER Provider Diagnostic Interpretation: ABDOMEN AND PELVIS CT WITHOUT CONTRAST CT DOSE: 1071.38 mGycm HISTORY: right flank pain, h/o stone TECHNIQUE: Multiaxial CT images of the abdomen and pelvis were performed without the use of intravenous and oral contrast according to the standard department stone protocol. A dose lowering technique was utilized adhering to the principles of ALARA. COMPARISON STUDY: Renal ultrasound 06/09/2017. Abdomen and pelvis CT 11/08/2016. FINDINGS: The lung bases are clear. Bilateral L4 spondylolysis with associated grade I anterolisthesis. Hepatic steatosis. The unenhanced spleen, adrenal glands, gallbladder, and pancreas are unremarkable. The left kidney is absent. There are multiple stones within the right kidney with the largest measuring 4 mm within the lower pole. These remain unchanged. No right ureteral calculi identified. The bladder is unremarkable. The uterus and bilateral adnexa are unremarkable. No pelvic free fluid. Suboptimal evaluation for bowel pathology due to the lack of intravenous and oral contrast. However, there is no definite bowel wall thickening or obstruction. Normal appendix. No retroperitoneal lymphadenopathy. IMPRESSION: 1. Right-sided nephrolithiasis, unchanged. No hydronephrosis. 2. Absent left kidney, unchanged. 3. No definite bowel wall thickening or obstruction. 4. Normal appendix. Laboratory Results 06/22/17 10:05 Red Blood Count 5.46, Mean Corpuscular Volume 88.3, Mean Corpuscular Hemoglobin 28.2, Mean Corpuscular Hemoglobin Concent 32.0, Mean Platelet Volume 10.8, Neutrophils (%) (Auto) 62.2, Lymphocytes (%) (Auto) 27.9, Monocytes (%) (Auto) 6.7, Eosinophils (%) (Auto) 2.4, Basophils (%) (Auto) 0.4, Neutrophils # (Auto) 4.60, Lymphocytes # (Auto) 2.07, Monocytes # (Auto) 0.50, Eosinophils # (Auto) 0.18, Basophils # (Auto) 0.03 06/22/17 10:05 Test 06/22/17 10:05 06/22/17 10:20 White Blood Count 7.41 K/uL (4.8-10.8) Red Blood Count 5.46 M/uL (4.2-5.4) Hemoglobin 15.4 g/dL (12.0-16.0) Hematocrit 48.2 % (37-47) Mean Corpuscular Volume 88.3 fL (80-100) Mean Corpuscular Hemoglobin 28.2 pg (25-34) Mean Corpuscular Hemoglobin Concent 32.0 g/dl (32-36) Platelet Count 254 K/uL (130-400) Mean Platelet Volume 10.8 fL (7.4-10.4) Neutrophils (%) (Auto) 62.2 % Lymphocytes (%) (Auto) 27.9 % Monocytes (%) (Auto) 6.7 % Eosinophils (%) (Auto) 2.4 % Basophils (%) (Auto) 0.4 % Neutrophils # (Auto) 4.60 K/uL (1.4-6.5) Lymphocytes # (Auto) 2.07 K/uL (1.2-3.4) Monocytes # (Auto) 0.50 K/uL (0.11-0.59) Eosinophils # (Auto) 0.18 K/uL (0-0.5) Basophils # (Auto) 0.03 K/uL (0-0.2) RDW Standard Deviation 50.1 fL (36.4-46.3) RDW Coefficient of Variation 15.6 % (11.5-14.5) Immature Granulocyte % (Auto) 0.4 % Immature Granulocyte # (Auto) 0.03 K/uL (0.00-0.02) Anion Gap 8.0 mmol/L (3-11) Est Creatinine Clear Calc Drug Dose 63.1 ml/min Estimated GFR () 49.3 Estimated GFR (Non- 42.5 BUN/Creatinine Ratio 17.7 (10-20) Calcium Level 10.1 mg/dl (8.5-10.1) Total Bilirubin 0.3 mg/dl (0.2-1) Aspartate Amino Transf (AST/SGOT) 19 U/L (15-37) Alanine Aminotransferase (ALT/SGPT) 14 U/L (12-78) Alkaline Phosphatase 108 U/L (45-117) Total Protein 7.4 gm/dl (6.4-8.2) Albumin 3.2 gm/dl (3.4-5.0) Globulin 4.2 gm/dl (2.5-4.0) Albumin/Globulin Ratio 0.8 (0.9-2) Urine Color YELLOW Urine Appearance CLEAR (CLEAR) Urine pH 5.0 (4.5-7.5) Urine Specific [place] 1.024 (1.000-1.030) Urine Protein NEG (NEG) Urine Glucose (UA) NEG (NEG) Urine Ketones NEG (NEG) Urine Occult Blood NEG (NEG) Urine Nitrite NEG (NEG) Urine Bilirubin NEG (NEG) Urine Urobilinogen NEG (NEG) Urine Leukocyte Esterase NEG (NEG) Medications Administered Medications (Trade) Dose Ordered Sig/Kathy Route Start Time Stop Time Status Last Admin Dose Admin Sodium Chloride 1,000 ml @ 999 mls/hr Q1H1M STAT IV 06/22/17 09:40 06/22/17 10:40 DC 06/22/17 10:27 999 MLS/HR Acetaminophen (Tylenol Tab) 1,000 mg NOW STAT PO 06/22/17 11:06 06/22/17 11:07 DC 06/22/17 12:02 1,000 MG ED Course The patient was seen and examined. Previous visits were reviewed. The patient does not have a fever or leukocytosis. She does not have any significant electrolyte abnormality. Her BUN/creatinine creatinine are 27 and 1.5. This is similar to previous. Urinalysis was negative for urinary tract infection or hematuria. CT scan of the abdomen and pelvis has a similar appearance to previous. The patient complains of right flank pain. There is no evidence for urinary tract infection, pyelonephritis or ureterolithiasis. This could potentially represent musculoskeletal back pain. She does not have any chest pain or trouble breathing. The patient can only take Tylenol. She cannot take any narcotics due to a previous history of narcotic abuse. She not take anti- inflammatories because of her chronic kidney disease. She continue Tylenol according to package instructions. She should follow-up with her family doctor and/or urology for further evaluation and management. She should return with any worsening symptoms. The case was discussed with Dr. Del Real who agrees with the assessment and treatment plan Medical Decision DIFFERENTIAL DIAGNOSIS: Hepatitis, cholecystitis, cholangitis, biliary colic, pancreatitis, pneumonia, subdiaphragmatic abscess, appendicitis, inguinal hernia , nephrolithiasis, inflammatory bowel disease, mesenteric adenitis, peptic ulcer disease, GERD, gastritis, pancreatitis, myocardial infarction, pericarditis, ruptured aortic aneurysm, appendicitis, gastroenteritis, bowel obstruction, splenic infarct, diverticulitis, mesenteric ischemia, metabolic, peritonitis, among others. Medication Reconcilliation Current Medication List: was personally reviewed by me Blood Pressure Screening Patient's blood pressure: Normal blood pressure Blood pressure disposition: Did not require urgent referral Impression Primary Impression: Right flank pain Departure Information Dispostion Home / Self-Care Condition GOOD Referrals Dana Harrington, C.R.N.P (PCP) Patient Instructions [facility] Additional Instructions follow up with your family doctor for further evaluation and management if symptoms persist in 24-48 hour Tylenol according to package instructions. No more than 4 grams in 24 hours return with fevers or generalized worsening symptoms
[2017-06-22 10:24] LABS: BASO % 0.4 %; BASO ABS # 0.03 K/uL (0-0.2); COMPLETE YES; EOS % 2.4 %; HEMATOCRIT 48.2 % (37-47); IG% 0.4 %; LYMPH % 27.9 %; LYMPH ABS # 2.07 K/uL (1.2-3.4); MEAN CELL VOLUME 88.3 fL (80-100); MEAN CORPUSCULAR HEMOGLOBIN 28.2 pg (25-34); MEAN PLATELET VOLUME 10.8 fL (7.4-10.4); MONO % 6.7 %; NEUT % 62.2 %; PLATELET COUNT 254 K/uL (130-400); RED BLOOD COUNT 5.46 M/uL (4.2-5.4); WHITE BLOOD COUNT 7.41 K/uL (4.8-10.8)
[2017-06-22 10:41] LABS: BUN/CREATININE RATIO 17.7 (10-20); CALCIUM 10.1 mg/dl (8.5-10.1); CREATININE 1.5 mg/dl (0.60-1.20); POTASSIUM 4.2 mmol/L (3.5-5.1)
[2017-06-22 10:44] LABS: ALB/GLOB RATIO 0.8 (0.9-2)
[2017-06-22 10:57] LABS: URINE APPEARANCE CLEAR (CLEAR); URINE BILIRUBIN NEG (NEG); URINE COLOR YELLOW; URINE SPECIFIC GRAVITY 1.024 (1.000-1.030); ZZURINE CULT IF INDIC CATH NO
[2017-06-22 10:58] LABS: URINE NITRITE NEG (NEG); UROBILINOGEN NEG (NEG)
[2017-06-22] MEDS ORDERED: ACETAMINOPHEN 500 MG TAB PO STA (11:06)
[2017-06-22 11:08] LABS: MANUAL MICROSCOPIC REQUIRED? NO; REVIEW REQ? NO
--- NOTE | 2017-06-22 12:15 | DIAGNOSTIC IMAGING REPORT ---
ABDOMEN AND PELVIS CT WITHOUT CONTRAST CT DOSE: 1071.38 mGycm HISTORY: right flank pain, h/o stone TECHNIQUE: Multiaxial CT images of the abdomen and pelvis were performed without the use of intravenous and oral contrast according to the standard department stone protocol. A dose lowering technique was utilized adhering to the principles of ALARA. COMPARISON STUDY: Renal ultrasound 06/09/2017. Abdomen and pelvis CT 11/08/2016. FINDINGS: The lung bases are clear. Bilateral L4 spondylolysis with associated grade I anterolisthesis. Hepatic steatosis. The unenhanced spleen, adrenal glands, gallbladder, and pancreas are unremarkable. The left kidney is absent. There are multiple stones within the right kidney with the largest measuring 4 mm within the lower pole. These remain unchanged. No right ureteral calculi identified. The bladder is unremarkable. The uterus and bilateral adnexa are unremarkable. No pelvic free fluid. Suboptimal evaluation for bowel pathology due to the lack of intravenous and oral contrast. However, there is no definite bowel wall thickening or obstruction. Normal appendix. No retroperitoneal lymphadenopathy. IMPRESSION: 1. Right-sided nephrolithiasis, unchanged. No hydronephrosis. 2. Absent left kidney, unchanged. 3. No definite bowel wall thickening or obstruction. 4. Normal appendix. Electronically signed by: Ayden Otero M.D. 06/22/2017 12:14 PM Dictated Date/Time: 06/22/2017 12:08 PM
[2017-06-22 14:05] VITALS: BP 115/74; PULSE 69; O2SAT 98
== END 2017-06-22 14:05 | disposition home or self-care (01) ==
LOC: EDBD 09:11 → C.EDB 09:13
DX: R10.30 Lower abdominal pain, unspecified (principal); I12.9 Hypertensive chronic kidney disease with stage 1 through stage 4 chronic kidney disease, or unspecified chronic kidney disease; N18.3 Chronic kidney disease, stage 3 (moderate); E11.9 Type 2 diabetes mellitus without complications; Z87.442 Personal history of urinary calculi; Z87.891 Personal history of nicotine dependence; Z79.84 Long term (current) use of oral hypoglycemic drugs; Z79.899 Other long term (current) drug therapy

== ENCOUNTER → 2017-08-24 | Outpatient (CLI) | payer OTHER ==
[~2017-08-24] MED LIST changes: -ACET-1325 PO; +CABE0.5T PO; +CEFA500C2 PO; +GLC/500 PO; -LEVO125T4 PO; +LEVO125T5 PO; -ONDA4TAB10 SL; +RIZA10TA19 PO; -SUMA100T15 PO; -SUMA100T16 PO
[2017-08-24 12:53] LABS: HEMATOCRIT 46.3 % (37-47); MEAN CELL VOLUME 92.2 fL (80-100); MEAN CORPUSCULAR HEMOGLOBIN 29.5 pg (25-34); MEAN PLATELET VOLUME 10.9 fL (7.4-10.4); PLATELET COUNT 214 K/uL (130-400); RED BLOOD COUNT 5.02 M/uL (4.2-5.4); WHITE BLOOD COUNT 6.22 K/uL (4.8-10.8)
[2017-08-24 13:08] LABS: URINE PROTIEN/CREAT RATIO 0.1 (0-0.2); URINE TOTAL PROTEIN 8.3 mg/dl (0-11.9)
[2017-08-24 13:12] LABS: ALT/SGPT 16 U/L (12-78); AST/SGOT 22 U/L (15-37); BLOOD UREA NITROGEN 21 mg/dl (7-18); BUN/CREATININE RATIO 14.4 (10-20); CALCIUM 8.9 mg/dl (8.5-10.1); CARBON DIOXIDE 27 mmol/L (21-32); CHLORIDE 104 mmol/L (98-107); CREATININE 1.46 mg/dl (0.60-1.20); GLUCOSE 96 mg/dl (70-99); MAGNESIUM 2.1 mg/dl (1.8-2.4); POTASSIUM 4.2 mmol/L (3.5-5.1); SODIUM 137 mmol/L (136-145)
[2017-08-24 13:23] LABS: ALB/GLOB RATIO 0.7 (0.9-2); ALKALINE PHOSPHATASE 100 U/L (45-117)
[2017-08-24 13:24] LABS: URINE APPEARANCE CLEAR (CLEAR); URINE BILIRUBIN NEG (NEG); URINE COLOR YELLOW; URINE EPITHELIAL CELL AUTO >30 /lpf (0-5); URINE NITRITE NEG (NEG); URINE SPECIFIC GRAVITY 1.016 (1.000-1.030); UROBILINOGEN NEG (NEG)
[2017-08-24 13:40] LABS: REVIEW REQ? YES
[2017-08-24 13:41] LABS: MANUAL MICROSCOPIC REQUIRED? NO
== END | disposition home or self-care (01) ==
LOC: C.LABPVFM 09:21
PROVIDERS: ATTEND Internal Medicine Nephrology
DX: N18.3 Chronic kidney disease, stage 3 (moderate) (principal); R31.29 Other microscopic hematuria; I12.9 Hypertensive chronic kidney disease with stage 1 through stage 4 chronic kidney disease, or unspecified chronic kidney disease; N20.0 Calculus of kidney; E55.9 Vitamin D deficiency, unspecified

== ENCOUNTER → 2017-09-14 | Outpatient (CLI) | payer OTHER ==
--- NOTE | 2017-09-14 14:12 | MAMMOGRAPHY REPORT ---
BILATERAL DIGITAL SCREENING MAMMOGRAM TOMOSYNTHESIS WITH CAD: 09/14/2017 CLINICAL HISTORY: Routine screening. Patient has no complaints. TECHNIQUE: Breast tomosynthesis in addition to standard 2D mammography was performed. Current study was also evaluated with a Computer Aided Detection (CAD) system. COMPARISON: Comparison is made to exams dated: 08/17/2016 mammogram and 08/15/2015 mammogram - [facility]. BREAST COMPOSITION: The tissue of both breasts is almost entirely fatty. FINDINGS: No suspicious masses, calcifications, or areas of architectural distortion are noted in ei ther breast. There has been no significant interval change compared to prior exams. Scattered bilater al benign-appearing calcifications are not significantly changed. IMPRESSION: ACR BI-RADS CATEGORY 2: BENIGN There is no mammographic evidence of malignancy. A 1 year screening mammogram is recommended. The pa tient will receive written notification of the results. Approximately 10% of breast cancers are not detected with mammography. A negative mammographic report should not delay biopsy if a clinically suggestive mass is present. Chelsy Mcgill M.D. ah/:09/14/2017 12:38:38 Reception Manager: Malaika Guzmán M, [facility] letter sent: Normal 1/2 BI-RADS Code: ACR BI-RADS Category 2: Benign
== END | disposition home or self-care (01) ==
LOC: C.MAMM 10:16
PROVIDERS: ATTEND Nurse Practitioner
DX: Z12.31 Encounter for screening mammogram for malignant neoplasm of breast (principal)

== ENCOUNTER 2017-11-19 16:20 | Emergency (ER) | payer OTHER ==
[~2017-11-19] VITALS: Ht 160 cm; Wt 136.0 kg
[2017-11-19 16:25] VITALS: TEMP 36.7; Ht 160 cm; Wt 136.0 kg
--- NOTE | 2017-11-19 16:53 | EMERGENCY ROOM VISIT NOTE ---
History Report prepared by [place]: Amber Bennett Under the Supervision of: Dr. Josh Ramos M.D. First contact with patient: 16:28 Chief Complaint: FLU LIKE SX Stated Complaint: COUGH,HEADACHE,SORE THROAT,DIARRHEA History of Present Illness The patient is a 42 year old female who presents to the Emergency Room with complaints of constant generalized illness beginning 3 days ago. The patient states she is "concerned I have the flu". She reports a headache, sorethroat, diarrhea, and a productive cough. The patient describes her cough as a "mucusy" cough. The patient reports she felt feverish but states she did not take her temperature. She has a history of CKD, a pituitary tumor, and migraines. 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 The patient is a former smoker and quit 3 years ago. She denies difficulty breathing or chest pain. The patient denies any chance of . Source of History: patient Onset: a couple days ago Position: other (generalized) Quality: other (illness) Timing: constant Associated Symptoms: + fevers, + headache, + sorethroat, + diarrhea Review of Systems See HPI for pertinent positives and negatives. A total of ten systems were reviewed and were otherwise negative. Past Medical & Surgical Medical Problems: (1) CKD (chronic kidney disease) stage 3, GFR 30-59 ml/min (2) Diabetes (3) HTN (hypertension) (4) Knee pain, bilateral (5) Nephrolithiasis (6) Weakness Family History Patient reports no known family medical history. Social History Smoking Status: Former Smoker Alcohol Use: occasionally Drug Use: none Marital Status: Current/Historical Medications Scheduled Allopurinol (Zyloprim), 100 MG PO BID Amitriptyline HCl (Amitriptyline HCl), 50 MG PO HS Cabergoline (Cabergoline), 0.5 MG PO 2XWK Calcium (Calcium), 600 MG PO DAILY Cefadroxil (Duricef), 500 MG PO BID Diclofenac Sod (Voltaren), 1 APPLN EXT QID Levothyroxine Sodium (Levothyroxine Sodium), 1 TAB PO DAILY Metformin Hcl (Glucophage), 500 MG PO BID Metoprolol Succinate (Metoprolol Succinate ER), 100 MG PO DAILY Potassium Citrate (Alkalinizer (Potassium Citrate ER), 15 MEQ PO BID Rizatriptan Benzoate (Maxalt-[employer] Conc[employer]ge), 10 MG PO UD Scheduled PRN Acetaminophen (Tylenol), 1,000 MG PO Q6H PRN for Headache or Pain Allergies Coded Allergies: Peanut (Verified Allergy, Severe, ANAPHYLAXIS, 01/14/17) Amlodipine (Verified Allergy, Intermediate, FEET SWELL AND TURN RED, ) Banana (Verified Allergy, Intermediate, "DRUNKEN" FEELING, 01/14/17) NSAIDs (Verified Allergy, Unknown, hx chronic kidney diseas, 01/14/17) Uncoded Allergies: NACROTICS (Allergy, Unknown, hx of drug addiction, 11/07/16) Physical Exam Vital Signs Date Time Temp Pulse Resp B/P (MAP) Pulse Ox O2 Delivery O2 Flow Rate FiO2 11/19/17 17:33 93 121/95 96 11/19/17 16:25 36.7 91 18 102/77 95 Room Air Physical Exam Physical Exam GENERAL: She is oriented to person, place, and time. She appears well- developed and well-nourished. She does not appear distressed. ____ HENT: Exam performed. Head: Normocephalic and atraumatic. Right Ear: External ear normal. No mastoid tenderness. Left Ear: External ear normal. No mastoid tenderness. Mouth/Throat: The oropharynx is clear and moist. No trismus in the jaw. No dental abscesses or uvula swelling. No oropharyngeal exudate or tonsillar abscesses. ____ EYES: Conjunctivae and EOM are normal. Pupils are equal, round, and reactive to light. Right eye exhibits no discharge. Left eye exhibits no discharge. No scleral icterus. ____ NECK: Normal range of motion. Neck supple. No JVD present. No spinous process tenderness present. No carotid bruit present. No rigidity. No tracheal deviation and normal range of motion present. No Brudzinski's sign and no Kernig 's sign noted. ____ CV: Normal rate, regular rhythm, normal heart sounds and intact distal pulses. There is no peripheral edema. Palpable radial pulses bue. ____ PULM/CHEST: Rhonchi at bases bilaterally. Effort normal. No respiratory distress. No stridor. She has no wheezes. She has no rales. Chest Wall: She exhibits no tenderness. ____ ABD: The abdomen is soft. Bowel sounds are normal. She has no distension. No mass is present. There is no tenderness. There is no rebound, no guarding, no Dolan's sign and no tenderness at McBurney's point. Rovsig negative MUSC/SKEL: Normal range of motion. There is no peripheral edema, tenderness or deformity. LYMPH: No cervical adenopathy. ____ NEURO: She is alert and oriented to person, place, and time. She has normal strength. No cranial nerve deficit or sensory deficit. Coordination and gait normal. GCS eye subscore is 4. GCS verbal subscore is 5. GCS motor subscore is 6. Cerebellar tests wnl. ____ SKIN: Skin is warm and dry. She is not diaphoretic. ____ PSYCH: She has a normal mood and affect. Her behavior is normal. Judgment and thought content normal. ____ Medical Decision & Procedures ER Provider Diagnostic Interpretation: Radiology results as stated below per my review and radiologist interpretation: CHEST 2 VIEWS ROUTINE FINDINGS: The cardiac and mediastinal contours are normal. There is no evidence of focal pulmonary consolidation. There is no evidence of failure. No pleural effusions are visualized.[ Slight accentuation of the interstitial markings is felt to be secondary to the patient's large body habitus. IMPRESSION: No active disease in the chest. Electronically signed by: Florentino Siddiqui M.D. Laboratory Results Test 11/19/17 16:30 11/19/17 16:41 Influenza Type A Antigen Neg for Influ A (NEG) Influenza Type B Antigen Neg for Influ B (NEG) Urine Color YELLOW Urine Appearance CLOUDY (CLEAR) Urine pH 7.5 (4.5-7.5) Urine Specific [place] 1.022 (1.000-1.030) Urine Protein NEG (NEG) Urine Glucose (UA) NEG (NEG) Urine Ketones NEG (NEG) Urine Occult Blood NEG (NEG) Urine Nitrite NEG (NEG) Urine Bilirubin NEG (NEG) Urine Urobilinogen NEG (NEG) Urine Leukocyte Esterase MODERATE (NEG) Urine WBC (Auto) 10-30 /hpf (0-5) Urine RBC (Auto) 5-10 /hpf (0-4) Urine Hyaline Casts (Auto) 1-5 /lpf (0-5) Urine Epithelial Cells (Auto) >30 /lpf (0-5) Urine Bacteria (Auto) 1+ (NEG) Urine Test NEG (NEG) Laboratory results reviewed by me ED Course 1631: The patient was evaluated in room C3. A complete history and physical exam was performed. 1721: I updated the patient on her test results. 1728: I reevaluated the patient. Discussed results and discharge instructions: She verbalized understanding and agreement. The patient is ready for discharge. Medical Decision Vitals stable physical exam within normal limits chest X-ray and .labs within normal limits. DISCHARGE - Plan of care discussed with patient and questions answered. The patient was given both verbal and printed discharge instructions. The patient verbalized understanding and ability to comply. The patient is to seek outpatient follow up as noted in the discharge instructions. The patient verbalized understanding and ability to comply. The patient is discharged in stable condition. The patient was instructed to return for worsening symptoms. Medication Reconcilliation Current Medication List: was personally reviewed by me Blood Pressure Screening Patient's blood pressure: Normal blood pressure Impression Primary Impression: Upper respiratory infection Scribe Attestation The scribe's documentation has been prepared under my direction and personally reviewed by me in its entirety. I confirm that the note above accurately reflects all work, treatment, procedures, and medical decision making performed by me. The chart was completed utilizing [employer] Speech voice recognition software. Grammatical errors, random word insertions, pronoun errors, and incomplete sentences are an occasional consequence of this system due to software limitations, ambient noise, and hardware issues. Any formal questions or concerns about the content, text, or information contained within the body of this dictation should be directly addressed to the physician for clarification. Departure Information Dispostion Home / Self-Care Referrals Dana Harrington, ChiquisN.P (PCP) Forms HOME CARE DOCUMENTATION FORM, IMPORTANT VISIT INFORMATION Patient Instructions ED URI Viral, [facility] Health Problem Qualifiers Primary Impression: Upper respiratory infection URI type: unspecified viral URI Qualified Codes: J06.9 - Acute upper respiratory infection, unspecified
[2017-11-19 17:12] LABS: INFLUENZA B ANTIGEN Neg for Influ B (NEG)
--- NOTE | 2017-11-19 17:19 | DIAGNOSTIC IMAGING REPORT ---
CHEST 2 VIEWS ROUTINE CLINICAL HISTORY: cough COMPARISON STUDY: 02/08/2017 FINDINGS: The cardiac and mediastinal contours are normal. There is no evidence of focal pulmonary consolidation. There is no evidence of failure. No pleural effusions are visualized.[ Slight accentuation of the interstitial markings is felt to be secondary to the patient's large body habitus. IMPRESSION: No active disease in the chest. Electronically signed by: Florentino Siddiqui M.D. 11/19/2017 5:17 PM Dictated Date/Time: 11/19/2017 5:17 PM
[2017-11-19 17:33] VITALS: BP 121/95; PULSE 93; O2SAT 96
== END 2017-11-19 17:34 | disposition home or self-care (01) ==
LOC: C.EDB 16:21 → C.EDC 17:34
DX: J06.9 Acute upper respiratory infection, unspecified (principal); N18.3 Chronic kidney disease, stage 3 (moderate); E11.22 Type 2 diabetes mellitus with diabetic chronic kidney disease; I12.9 Hypertensive chronic kidney disease with stage 1 through stage 4 chronic kidney disease, or unspecified chronic kidney disease; G43.709 Chronic migraine without aura, not intractable, without status migrainosus; Z79.1 Long term (current) use of non-steroidal anti-inflammatories (NSAID); Z79.2 Long term (current) use of antibiotics; Z87.891 Personal history of nicotine dependence; Z91.010 Allergy to peanuts; Z88.8 Allergy status to other drugs, medicaments and biological substances; Z91.048 Other nonmedicinal substance allergy status